=== PATIENT | male | born 1955 | race Caucasian/White ===

== ENCOUNTER 2018-07-25 18:16 | Inpatient (IN) | payer MEDICARE, OTHER ==
[~2018-07-25] VITALS: Ht 172.7 cm; Wt 54.0 kg
[2018-07-25] MEDS ORDERED: BENZTROPINE ME0.5 MG PO (18:19)
[2018-07-25] MEDS ORDERED: LORAZEPAM1 MG ORAL (18:19)
[2018-07-25] MEDS ORDERED: OLANZAPINE20 MG ORAL (18:19)
[2018-07-25] MEDS ORDERED: HALOPERIDOL5 MG ORAL (18:19)
[2018-07-25] MEDS ORDERED: Adenosine 6mg/2ml Inj ONE ×2 (18:24→18:25)
[2018-07-25] MEDS ORDERED: dilTIAZem HCl 50mg/10ml Inj IVP ONE (18:32)
--- NOTE | 2018-07-25 18:39 | NUR ---
ED Nurse Note: Pt BIBA from [facility] w/ complaints of diarrhea x 2 hours. Upon arrival, pt was hypotensive w/ systolic of 90 as per EMS. Upon arrival to ED, pt noted to have barrel chest, pursed lip breathing, pale in color, and had a BP of 114/71 HR was over 200 and in SVT. ERMD ordered cardizem. Pulled out adenosine and while maría gout at the first time, pyxis slot was not opening. Returned adenosine to [facility]. Before pushing cardizem via IV VS were 114/71 HR 248 O2 96% and RR 42. After cardizem sinus rhythm and HR went down to 103. A + O x1. Hx of schizo.
[2018-07-25 18:42] VITALS: BP 114/71
[2018-07-25] MEDS ORDERED: dilTIAZem HCl 25mg/5ml Inj IVP ONE (18:45)
--- NOTE | 2018-07-25 18:47 | Emergency Room Report ---
History of Present Illness General Chief Complaint: General Complaint Source: EMS (Kim Stokes DO) Present Illness HPI Patient was initially brought in with complaints of diarrhea Upon initial evaluation the patient's heart rate was over 200 Appear to be tachypneic and uncomfortable Patient himself is nonverbal with me He does nod his head to verbal questions Unknown regarding fevers Patient denies any chest pain however he does feel palpitation sensation Patient is brought in from a nursing facility with previous diagnoses of hypertension schizophrenia (Kim Stokes DO) Allergies: Coded Allergies: No Known Allergies (Unverified , 07/25/18) Patient History Limited by: medical condition Past Medical History: see triage record Pertinent Family History: unable to obtain Reviewed Nursing Documentation: PMH: Agreed; PSxH: Agreed (Kim Stokes DO) Nursing Documentation-PMH Past Medical History: No History, Except For Hx Hypertension: Yes Hx COPD: Yes History Of Psychiatric Problem: Yes - schizophrenia, depressive disorder (Kim Stokes DO) Review of Systems All Other Systems: limited - Other than the ones mentioned in the history of present illness all others are reviewed however they do stay limited due to the patient's mental status (Kim Stokes DO) Physical Exam Vital Signs Date Time Temp Pulse Resp B/P (MAP) Pulse Ox O2 Delivery O2 Flow Rate FiO2 07/25/18 18:12 98.1 73 16 95/83 94 Room Air Sp02 EP Interpretation: reviewed, normal General Appearance: mild distress - Tachypneic Head: normocephalic, atraumatic Eyes: bilateral eye PERRL, bilateral eye EOMI ENT: hearing grossly normal, normal pharynx, TMs + canals normal, uvula midline Neck: full range of motion, supple, no meningismus, no bony tend Respiratory: lungs clear, normal breath sounds, no rhonchi, no accessory muscle use, other - Tachypneic Cardiovascular #1: normal peripheral pulses, no JVD, no murmur, tachycardia Gastrointestinal: normal bowel sounds, no mass, no organomegaly, non-distended , no guarding, no hernia, no pulsatile mass, no rebound Genitourinary: no CVA tenderness Musculoskeletal: normal inspection Neurologic: responsive, 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, motor strength/tone normal Psychiatric: mood/affect normal Skin: normal color, no rash, warm/dry, palpation normal Lymphatic: normal inspection, no adenopathy (Kim Stokes DO) Procedures Critical Care Time Critical Care Time 50 minutes for initial critical presentation concerning for cardiopulmonary arrest and possible , not including any procedural time (Kim Stokes DO) Medical Decision Making Diagnostic Impression: Primary Impression: tachy arrhythmia Additional Impressions: COPD (chronic obstructive pulmonary disease) Qualified Codes: J44.9 - Chronic obstructive pulmonary disease, unspecified ACS (acute coronary syndrome) Diarrhea Qualified Codes: R19.7 - Diarrhea, unspecified Non-ST elevated myocardial infarction ER Course Patient is a fairly complex patient with multiple differential to consideration including but not limited to cardiac cardiopulmonary and vascular emergencies Patient's initial EKG significantly abnormal Required acute intervention Given some of the questionable prolonged QRS I did not want to initially used adenosine Low dose Cardizem was used with good reaction Patient extremely critical multiple differentials including pulmonary embolism also entertained patient requiring admission with further inpatient care Labs Test 07/25/18 19:15 07/25/18 19:31 07/25/18 21:45 07/26/18 06:54 White Blood Count 15.8 K/UL (4.8-10.8) 12.6 K/UL (4.8-10.8) Red Blood Count 4.92 M/UL (4.70-6.10) 4.88 M/UL (4.70-6.10) Hemoglobin 15.3 G/DL (14.2-18.0) 15.2 G/DL (14.2-18.0) Hematocrit 44.6 % (42.0-52.0) 44.8 % (42.0-52.0) Mean Corpuscular Volume 91 FL (80-99) 92 FL (80-99) Mean Corpuscular Hemoglobin 31.2 PG (27.0-31.0) 31.2 PG (27.0-31.0) Mean Corpuscular Hemoglobin Concent 34.4 G/DL (32.0-36.0) 33.9 G/DL (32.0-36.0) Red Cell Distribution Width 11.0 % (11.6-14.8) 11.3 % (11.6-14.8) Platelet Count 324 K/UL (150-450) 354 K/UL (150-450) Mean Platelet Volume 4.5 FL (6.5-10.1) 4.9 FL (6.5-10.1) Neutrophils (%) (Auto) 89.1 % (45.0-75.0) % (45.0-75.0) Lymphocytes (%) (Auto) 3.9 % (20.0-45.0) % (20.0-45.0) Monocytes (%) (Auto) 6.1 % (1.0-10.0) % (1.0-10.0) Eosinophils (%) (Auto) 0.0 % (0.0-3.0) % (0.0-3.0) Basophils (%) (Auto) 0.8 % (0.0-2.0) % (0.0-2.0) Prothrombin Time 11.4 SEC (9.30-11.50) Prothromb Time International Ratio 1.1 (0.9-1.1) Activated Partial Thromboplast Time 35 SEC (23-33) Urine Color Pale yellow Urine Appearance Clear Urine pH 7 (4.5-8.0) Urine Specific [place] 1.005 (1.005-1.035) Urine Protein 3+ (NEGATIVE) Urine Glucose (UA) 1+ (NEGATIVE) Urine Ketones 1+ (NEGATIVE) Urine Blood 3+ (NEGATIVE) Urine Nitrite Negative (NEGATIVE) Urine Bilirubin Negative (NEGATIVE) Urine Urobilinogen Normal MG/DL (0.0-1.0) Urine Leukocyte Esterase Negative (NEGATIVE) Urine RBC 5-10 /HPF (0 - 0) Urine WBC 0-2 /HPF (0 - 0) Urine Squamous Epithelial Cells Occasional /LPF Urine Amorphous Sediment Moderate /LPF (NONE) Urine Bacteria Few /HPF (NONE) Sodium Level 128 MMOL/L (136-145) Potassium Level 3.6 MMOL/L (3.5-5.1) Chloride Level 90 MMOL/L (98-107) Carbon Dioxide Level 24 MMOL/L (21-32) Anion Gap 14 mmol/L (5-15) Blood Urea Nitrogen 12 mg/dL (7-18) Creatinine 0.8 MG/DL (0.55-1.30) Estimat Glomerular Filtration Rate > 60 mL/min (>60) Glucose Level 116 MG/DL (74-106) Lactic Acid Level 3.10 mmol/L (0.4-2.0) 0.90 mmol/L (0.66-2.22) Calcium Level 8.8 MG/DL (8.5-10.1) Phosphorus Level 4.0 MG/DL (2.5-4.9) Magnesium Level 1.8 MG/DL (1.8-2.4) Total Bilirubin 0.3 MG/DL (0.2-1.0) Aspartate Amino Transf (AST/SGOT) 30 U/L (15-37) Alanine Aminotransferase (ALT/SGPT) 24 U/L (12-78) Alkaline Phosphatase 97 U/L (46-116) Total Creatine Kinase 121 U/L (26-308) Creatine Kinase MB 2.6 NG/ML (0.0-3.6) Creatine Kinase MB Relative Index 2.1 Troponin I 0.469 ng/mL (0.000-0.056) Pro-B-Type Natriuretic Peptide 1117 pg/mL (0-125) Total Protein 7.4 G/DL (6.4-8.2) Albumin 3.1 G/DL (3.4-5.0) Globulin 4.3 g/dL Albumin/Globulin Ratio 0.7 (1.0-2.7) Lipase 56 U/L (73-393) Arterial Blood pH 7.466 (7.350-7.450) Arterial Blood Partial Pressure CO2 37.0 mmHg (35.0-45.0) Arterial Blood Partial Pressure O2 58.9 mmHg (75.0-100.0) Arterial Blood HCO3 26.1 mmol/L (22.0-26.0) Arterial Blood Oxygen Saturation 90.9 % (95-100) Arterial Blood Base Excess 2.5 (-2-2) Akhil Test Positive Differential Total Cells Counted 100 Neutrophils % (Manual) 96 % (45-75) Lymphocytes % (Manual) 3 % (20-45) Monocytes % (Manual) 1 % (1-10) Eosinophils % (Manual) 0 % (0-3) Basophils % (Manual) 0 % (0-2) Band Neutrophils 0 % (0-8) Platelet Estimate Adequate Platelet Morphology Normal Red Blood Cell Morphology Normal (Kim Stokes DO) ER Course Patient signout to me. He presents with chief complaint of diarrhea from care home. On arrival heart rate noted to be in the 200. He has ST depression concerning for ACS. First troponin elevated at 0.469. Cardizem given and heart rate controlled now. Blood pressure stable. Patient will be admitted here. Discussed the case with Dr. Araiza who will admit. (Curtis Torres MD) EKG Diagnostic Results Rate: tachycardiac Rhythm: other - wide complex ST Segments: other (Kim Stokes DO) Rhythm Strip Diag. Results EP Interpretation: yes Rate: 220 Rhythm: no PVC's, no ectopy, other - Tachycardia (Kim Stokes DO) Chest X-Ray Diagnostic Results Chest X-Ray Diagnostic Results : Chest X-Ray Ordered: Yes # of Views/Limited/Complete: 1 View Indication: Shortness of Breath EP Interpretation: Yes Interpretation: no consolidation, no effusion, no pneumothorax Impression: No acute disease - Some interstitial markings, COPD Electronically Signed by: Kim Stokes DO (Kim Stokes DO) Last Vital Signs Date Time Temp Pulse Resp B/P (MAP) Pulse Ox O2 Delivery O2 Flow Rate FiO2 07/25/18 18:12 98.1 73 16 95/83 94 Room Air Status: improved (Kim Stokes DO) Status: improved (Curtis Torres MD) Disposition: ADMITTED INPATIENT Condition: Critical Kim Stokes DO Jul 25, 2018 18:47 Curtis Torres MD Jul 25, 2018 21:38
[2018-07-25] MEDS ORDERED: Solu-MEDROL 125mg Inj IVP ONE (19:00)
[2018-07-25] MEDS ORDERED: Levalbuterol Inh UD 1.25mg/0.5ml HHN ONE (19:00)
[2018-07-25 19:27] LABS: HEMATOCRIT 44.6 % (42.0-52.0); HEMOGLOBIN 15.3 G/DL (14.2-18.0); MEAN CORPUSCULAR VOLUME 91 FL (80-99); PLATELET COUNT 324 K/UL (150-450); RED BLOOD COUNT 4.92 M/UL (4.70-6.10); WHITE BLOOD COUNT 15.8 K/UL (4.8-10.8)
--- NOTE | 2018-07-25 19:40 | NUR ---
ED Nurse Note: Blood and urine sample sent to lab.
[2018-07-25 19:42] LABS: BASOPHILS % (AUTO) 0.8 % (0.0-2.0); LYMPHOCYTES % (AUTO) 3.9 % (20.0-45.0); MONOCYTES % (AUTO) 6.1 % (1.0-10.0); NEUTROPHILS % (AUTO) 89.1 % (45.0-75.0)
[2018-07-25 19:43] LABS: ANION GAP 14 mmol/L (5-15); BLOOD UREA NITROGEN 12 mg/dL (7-18); CALCIUM 8.8 MG/DL (8.5-10.1); CARBON DIOXIDE 24 MMOL/L (21-32); CHLORIDE 90 MMOL/L (98-107); CREATININE 0.8 MG/DL (0.55-1.30); POTASSIUM 3.6 MMOL/L (3.5-5.1); SODIUM 128 MMOL/L (136-145)
--- NOTE | 2018-07-25 19:51 | NUR ---
RESPIRATORY NOTE: ABG ORDERED FOR 1950 IS A DUPLICATE ORDER. ABG WAS COMPLETED AT 193. ED. CHARGE NURSE NOTIFIED.
[2018-07-25 19:52] LABS: APPEARANCE,URINE CLEAR; BILIRUBIN, URINE NEGATIVE (NEGATIVE); COLOR,URINE PALE YELLOW; GLUCOSE, URINE (UA) 1+ (NEGATIVE); KETONES,URINE 1+ (NEGATIVE); LEUKOCYTE ESTERASE ,URINE NEGATIVE (NEGATIVE); NITRITE,URINE NEGATIVE (NEGATIVE); PH,URINE 7 (4.5-8.0); PROTEIN,URINE 3+ (NEGATIVE); UROBILINOGEN,URINE NORMAL MG/DL (0.0-1.0)
[2018-07-25 19:57] LABS: ALANINE AMINOTRANSFERASE 24 U/L (12-78); ALBUMIN 3.1 G/DL (3.4-5.0); ALBUMIN/GLOBULIN RATIO 0.7 (1.0-2.7); ALKALINE PHOSPHATASE 97 U/L (46-116); ASPARTATE AMINO TRANSFERASE 30 U/L (15-37); BILIRUBIN,TOTAL 0.3 MG/DL (0.2-1.0); CKMB 2.6 NG/ML (0.0-3.6); CREATINE KINASE 121 U/L (26-308)
[2018-07-25 20:05] LABS: INR 1.1 (0.9-1.1)
--- NOTE | 2018-07-25 20:50 | NUR ---
ED Nurse Note: Notified ERMD Pt's Lactic acid and Troponin level, ERMD aware.
[2018-07-25] MEDS ORDERED: dilTIAZem HCl CD 120mg cap ORAL ONE (21:00)
[2018-07-25 21:13] VITALS: BP 127/55
--- NOTE | 2018-07-25 21:55 | NUR ---
ED Nurse Note: Lactic acid reflex sample sent to lab.
--- NOTE | 2018-07-25 23:08 | NUR ---
ED Nurse Note: Insert F/C for strict I/O. Pt had diarrhea [id number], cleaned pt and asscess skin and sacral and back skin all intact.
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
--- NOTE | 2018-07-26 01:00 | NUR ---
ED Nurse Note: Report given to ISA Rodas Pt skin and condition report to floor nurse.
[2018-07-26 01:05] VITALS: BP 116/66
--- NOTE | 2018-07-26 01:40 | NUR ---
NURSE NOTES: ADMITTED 63 YEAR OLD MALE TO ROOM 205 BED 1 VIA GURNEY FROM EMERGENCY DEPARTMENT WITH DIAGNOSIS DIARRHEA/TACHY ARRHYTHMIA, UNDER THE CARE OF DR. DE ANDA. PATIENT AWAKE, ALERT/ORIENTED X1, CONFUSED, DISORIENTED, ORIENTATED TO ROOM/ENVIRONMENT. TOLERATING 02 2LVIA NASAL CANULA, SP02 94%, NO SIGNS AND SYMPTOMS OF ACUTE CARDIO RESPIRATORY DISTRESS/SHORTNESS OF BREATH, NO PERIPHERAL EDEMA NOTED. VITALS MONITORED, B/P 138/76, R 22, PULSE 84, T 97.9. JONES CATHETER FR #16 INTACT, PATENT, DRAINING YELLOW URINE VIA GRAVITY, NO SIGNS AND SYMPTOMS OF HEMATURIA, PATIENT CLEAN AND DRY, NO DIARRHEA NOTED. SKIN INTACT, SACRAL REDNESS SECONDARY TO DIARRHEA. SIDE RAILS UP X3/BED IN LOWEST POSITION FOR SAFETY. CALL LIGHT WITHIN REACH. FREQUENT ROUNDING FOR SAFETY/NEEDS.
--- NOTE | 2018-07-26 03:07 | NUR ---
NURSE NOTES: TELEPHONE CALL PLACED TO [facility] BOARD AND CARE, SPOKE TO MARQUISE, CAREGIVER, REGARDING HISTORY OF VACCINATIONS/HEALTH CARE DECISION MAKER - CAREGIVER STATED THAT PATIENT DOES NOT HAVE RECORD OF VACCINATIONS, NO CONSERVATOR OR HEALTH CARE DECISION MAKER. AISLINN MARR, PATIENT COUSIN, WAS NOTIFIED BY BOARD AND CARE OF TRANSFER TO [facility]. WILL ATTEMPT TO FOLLOW UP WITH MR. MARR [phone] - [phone].
[2018-07-26 04:00] VITALS: BP 118/68
--- NOTE | 2018-07-26 06:24 | NUR ---
NURSE NOTES: RESTED QUIETLY, NO DISTRESS NOTED.
--- NOTE | 2018-07-26 07:30 | NUR ---
NURSE NOTES: Received report from Janina/RN, Patient is confused and trying to get up. IV line intact running 100cc /hr. bed alarm on, call light in reach, bed in low position. Will continue plan of care.
--- NOTE | 2018-07-26 07:50 | NUR ---
CASE MANAGEMENT:REVIEW 63 YR OLD MALE BIBA FROM [facility] CC: HYPOTENSION ~ BP 97/73 SI: TACHY ARRHYTHMIA. COPD. ACS. DIARRHEA 98.0 248 42 95/83 94% ON RA WBC+15.8 NA-128 TROPONIN(+)0.469 IS: IV CARDIZEM IV SOLUMEDROL CARDIZEM PO ALBUTEROL HHN CXR BLOOD CX : TO TELEMETRY IS: IVF@100/HR INTERQUAL CRITERIA MET
[2018-07-26 07:53] LABS: HEMATOCRIT 44.8 % (42.0-52.0); HEMOGLOBIN 15.2 G/DL (14.2-18.0); MEAN CORPUSCULAR VOLUME 92 FL (80-99); PLATELET COUNT 354 K/UL (150-450); RED BLOOD COUNT 4.88 M/UL (4.70-6.10); RED CELL DISTRIBUTION WIDTH 11.3 % (11.6-14.8); WHITE BLOOD COUNT 12.6 K/UL (4.8-10.8)
[2018-07-26 08:00] VITALS: BP 155/86
[2018-07-26] MEDS: Benztropine 1mg tab ORAL SCH ×2 (08:44→21:06)
[2018-07-26] MEDS: Megace 400mg/10ml Susp ORAL SCH (08:45)
[2018-07-26] MEDS ORDERED: LORazepam 1mg tab ORAL SCH (09:00)
[2018-07-26] MEDS: Breo Ellipta 100/25mcg - 14 dose INH SCH (09:24)
--- NOTE | 2018-07-26 09:28 | NUR ---
RESPIRATORY NOTE: Pt scheduled MDI tx, agreed to take treatment and then refused. Asked me to leave room and leave him alone. will notify RN.
[2018-07-26] MEDS ORDERED: Metoprolol Succinate XL 50mg tab ORAL SCH (10:00)
--- NOTE | 2018-07-26 10:08 | NUR ---
NURSE NOTES: Notified Dr. Nancy Cedillo, regarding Hear rate is >200. Will continue plan of care.
[2018-07-26] MEDS ORDERED: Metoprolol Succinate XL 25mg tab ORAL SCH (10:30)
--- NOTE | 2018-07-26 10:57 | NUR ---
NURSE NOTES: Called Dr. Kendall, regarding Hear rate is >200. left a message. Will continue plan of care.
--- NOTE | 2018-07-26 11:00 | History and Physical Report ---
DATE OF ADMISSION: 07/25/2018 NOTE: "POOR AUDIO QUALITY" HISTORY OF PRESENT ILLNESS: This is a 63-year-old male who came to the emergency room with chest pain, palpitations, and generalized weakness. The patient was also found to have heart rate of over 200 on arrival and also has some diarrhea for the last few days and he has depression. Heart rate is controlled by Cardizem which was given and his troponin is slightly positive . The patient is currently doing better. PAST MEDICAL HISTORY: Significant for depression and hypertension. ALLERGIES: NKA. MEDICATIONS: See the list. PHYSICAL EXAMINATION: GENERAL: This is an elderly male, who is currently awake and comfortable. Currently, no chest pain. VITAL SIGNS: Blood pressure is 140/70, pulse 74, and respirations 18. HEENT: NAD. CHEST: Bilaterally clear. CARDIOVASCULAR: Regular rhythm. No gallop. No murmur. ABDOMEN: Soft. Positive bowel sounds. Nontender. EXTREMITIES: No CCE. NEUROLOGICAL: No focal deficit. ASSESSMENT: 1. Acute coronary syndrome. 2. Cardiac arrhythmia. 3. Depression. PLAN: We will admit to a telemetry bed to rule out . Consider Cardiology consult and continue aspirin and beta-miesha. Check 2D echocardiogram and probably stress test. Roberto Araiza M.D. DR: GABRIEL JOB#: [id number] CC:
[2018-07-26] MEDS ORDERED: dilTIAZem HCl 25mg/5ml Inj IVP SCH (11:15)
[2018-07-26 12:00] VITALS: BP 100/59
[2018-07-26] MEDS ORDERED: dilTIAZem HCl 25mg/5ml Inj IV SCH ×2 (12:00→12:30)
[2018-07-26] MEDS ORDERED: cefTRIAXone 1 GM in D5W 55 ML IVPB SCH (14:00)
[2018-07-26] MEDS ORDERED: Haloperidol 5mg/ml Inj IM PRN (14:45)
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
--- NOTE | 2018-07-26 15:12 | NUR ---
NURSE NOTES:WOUND CARE NOTES:Pt presented on admission with non-blanchable erythema Sacrum extending to L buttocks. Base of wound without fluctuance or induration .Pt denied tenderness when minimally palpated. (L011.5cm x (W)13cm. Non-blanchable erythema bilat heels and lateral aspects of both feet. Non-tender when minimally palpated. Pt demonstrated to reposition self when cued by staff. Pt educated on wound prevention and encouraged to frequently turn while in bed. Pt verbalized understanding. Recommendations: Apply Triad paste to buttocks /sacrum. Cover with Optifoam drsg .Change every 3 days and prn. Apply Cavilon skin barrier to red areas both heels and lateral aspects of both feet .Cover each heel with Optifoam drsg .Esquivel every 7 days and prn. Encourage and assist with repositioning at least every 2hours or as tolerated.
[2018-07-26] MEDS ORDERED: Digoxin 0.5mg/2ml Inj IVP SCH (15:43)
[2018-07-26 16:00] VITALS: BP 112/102
[2018-07-26] MEDS: Metoprolol 5mg/5ml Inj IVP SCH ×3 (16:29→18:05)
[2018-07-26] MEDS: OLANZapine 2.5mg tab ORAL SCH (18:05)
[2018-07-26 20:00] VITALS: BP 131/74
--- NOTE | 2018-07-26 20:11 | NUR ---
HAND-OFF: Report given to Raissa/Zeinab, Patient ia asleep, no sign of distress/SOB noted. Endorsed plan of care.
[2018-07-26] MEDS: Metoprolol Succinate XL 50mg tab ORAL SCH (21:05)
--- NOTE | 2018-07-26 21:32 | NUR ---
NURSE NOTES: Report received from ASIYA Bonner. Pt is lying comfortably in semi-fowlers with no signs of distress. Pt is A+Ox1 and shows no signs of pain/SOB. Respirations are even and unlabored on 2 L NC. IV site is patent, intact, and running fluids @ prescribed rate. [place] in place, patent, and draining to gravity at foot of bed. Bilateral soft wrist restraints in place with no signs of skin breakdown. Food and water needs met. Bed is at lowest position, brakes engaged, siderails x3, bed alarm on, and call light within reach. Pt is in stable condition at this time; will continue to monitor.
--- NOTE | 2018-07-26 21:58 | Cardiology Progress Note ---
Assessment/Plan Assessment/Plan The patient is seen and examined, full consult note will be dictated shortly. Objective Last 24 Hour Vital Signs Date Time Temp Pulse Resp B/P (MAP) Pulse Ox O2 Delivery O2 Flow Rate FiO2 07/26/18 21:05 89 131/74 07/26/18 20:00 97.7 89 20 131/74 (93) 92 07/26/18 18:05 132 128/83 07/26/18 17:17 130 112/102 07/26/18 16:30 175 07/26/18 16:29 79 100/59 07/26/18 16:00 97.3 175 20 112/102 (105) 98 07/26/18 16:00 171 07/26/18 12:50 175 110/59 07/26/18 12:00 97.1 79 20 100/59 (73) 95 07/26/18 10:39 100 155/86 07/26/18 09:28 Room Air 21 07/26/18 09:24 Nasal Cannula 2.0 28 07/26/18 09:24 Nasal Cannula 2.0 28 07/26/18 09:00 Nasal Cannula 2.0 07/26/18 09:00 Nasal Cannula 2.0 07/26/18 08:00 124 07/26/18 08:00 96.7 100 20 155/86 (109) 93 07/26/18 05:30 Nasal Cannula 2.0 07/26/18 04:00 74 07/26/18 04:00 97.9 85 18 118/68 (85) 97 07/26/18 02:09 Nasal Cannula 2.0 07/26/18 01:20 97.8 86 30 116/66 92 Room Air 2.0 21 07/26/18 01:05 97.8 86 30 116/66 92 Room Air 2.0 Intake and Output 07/25/18 07/26/18 19:00 07:00 Intake Total 540 ml Balance 540 ml Intake Oral 340 ml IV Total 200 ml # Voids 1 Laboratory Tests Test 07/26/18 06:54 White Blood Count 12.6 K/UL (4.8-10.8) H Red Blood Count 4.88 M/UL (4.70-6.10) Hemoglobin 15.2 G/DL (14.2-18.0) Hematocrit 44.8 % (42.0-52.0) Mean Corpuscular Volume 92 FL (80-99) Mean Corpuscular Hemoglobin 31.2 PG (27.0-31.0) H Mean Corpuscular Hemoglobin Concent 33.9 G/DL (32.0-36.0) Red Cell Distribution Width 11.3 % (11.6-14.8) L Platelet Count 354 K/UL (150-450) Mean Platelet Volume 4.9 FL (6.5-10.1) L Neutrophils (%) (Auto) % (45.0-75.0) Lymphocytes (%) (Auto) % (20.0-45.0) Monocytes (%) (Auto) % (1.0-10.0) Eosinophils (%) (Auto) % (0.0-3.0) Basophils (%) (Auto) % (0.0-2.0) Differential Total Cells Counted 100 Neutrophils % (Manual) 96 % (45-75) H Lymphocytes % (Manual) 3 % (20-45) L Monocytes % (Manual) 1 % (1-10) Eosinophils % (Manual) 0 % (0-3) Basophils % (Manual) 0 % (0-2) Band Neutrophils 0 % (0-8) Platelet Estimate Adequate Platelet Morphology Normal Red Blood Cell Morphology Normal Microbiology Date/Time Source Procedure Growth Status 07/25/18 19:15 Blood Blood Culture - Preliminary Resulted 07/25/18 19:00 Blood Blood Culture - Preliminary Resulted 07/25/18 21:30 Rectum Received Thom Gleason MD Jul 26, 2018 21:58
[2018-07-27] VITALS: BP 132/87
[2018-07-27 04:00] VITALS: BP 147/92
--- NOTE | 2018-07-27 05:48 | NUR ---
NURSE NOTES: Pt's blood positive for gram negative rods. Left message with Dr. Araiza regarding these results; awaiting response.
--- NOTE | 2018-07-27 06:38 | NUR ---
NURSE NOTES: Left message with Dr. Arevalo regarding blood cultures; awaiting response.
--- NOTE | 2018-07-27 07:07 | NUR ---
HAND-OFF: Report given to ASIYA Garcia. Pt is in stable condition; plan of care endorsed.
--- NOTE | 2018-07-27 07:15 | NUR ---
NURSE NOTES: I received the patient resting in bed. Patient awakes to name. Bed in the lowest position and call light within reach. Soft wrist restraints on patient. Medina inserted and appears to be draining well. I will continue to monitor the patient and implement care.
[2018-07-27 08:00] VITALS: BP 137/78
[2018-07-27] MEDS: Benztropine 1mg tab ORAL SCH ×2 (08:42→20:26)
[2018-07-27] MEDS: Metoprolol Succinate XL 50mg tab ORAL SCH ×2 (08:42→20:27)
[2018-07-27] MEDS: OLANZapine 2.5mg tab ORAL SCH ×3 (08:42→17:49)
[2018-07-27] MEDS: Megace 400mg/10ml Susp ORAL SCH (08:43)
[2018-07-27] MEDS: Breo Ellipta 100/25mcg - 14 dose INH SCH (09:00)
[2018-07-27] MEDS ORDERED: Vancomycin 1gm/D5W 275ml IVPB SCH ×2 (10:00)
[2018-07-27] MEDS: Piperacillin/Tazobactam 3.375 GM in D5W 110 ML IVPB SCH ×3 (10:07→21:15)
[2018-07-27 12:00] VITALS: BP 143/83
--- NOTE | 2018-07-27 12:27 | NUR ---
NURSE NOTES: Patient had soft wrist restraints applied. Patient peripheral pulses present. Initial order never entered. I conducted assessments per policy. Patient calm and resting in bed. Bed in the lowest position and call light within reach.
--- NOTE | 2018-07-27 13:51 | History and Physical Report ---
DATE OF ADMISSION: 07/25/2018 HISTORY OF PRESENT ILLNESS: This is a 63-year-old male, who lives in [facility], came to the emergency room with diarrhea, tachycardia, ACS, COPD, and generalized weakness. The patient is currently sleeping, unable to give any history. PAST MEDICAL HISTORY: Significant for COPD, depression, and agitation. MEDICATIONS: See the list. Tylenol, Cogentin, Ellipta, Haldol, lorazepam, Megace, and Zyprexa. PHYSICAL EXAMINATION: GENERAL: This is an elderly male, currently sleeping, looks comfortable. Short of breath is improving. No chest pain. VITAL SIGNS: Blood pressure is 155/86, pulse 100, respirations 20, saturation 93%, and temperature 96.7. HEENT: AT/NC. EOMI. PERRLA. NECK: Supple. No JVD. CHEST: Bilateral decreased breath sounds. Scattered crackles. CARDIOVASCULAR: rhythm. Tachycardia. ABDOMEN: Soft. Positive bowel sounds. Nontender. EXTREMITIES: CCE. NEUROLOGIC: Generalized weakness. GENITOURINARY: Deferred. LABORATORY DATA: White counts are 16,000, hemoglobin 15, and platelets are 324. Chemistry panel; his lactic acid 3.10. Sodium 128, potassium 3.6, BUN 12, creatinine 0.8. Troponin 0.469. BNP was 1117. Glucose 117. Albumin is 3.1. His chest x-ray report and microbiology done, results are not available. ASSESSMENT AND PLAN: 1. Acute coronary syndrome. 2. Tachycardia. 3. Acute COPD. 4. Depression. 5. Diarrhea. We will currently continue current treatment. The patient is currently on aspirin, Haldol, Zyprexa, and lorazepam. Check 2D echo. Cardiology consult. Continue Cardizem. Also added Solu-Medrol and consider Pulmonary, Cardiology, and Psychiatry consult. Roberto Araiza M.D. DR: MILAGROS JOB#: [id number] CC:
--- NOTE | 2018-07-27 13:58 | NUR ---
NURSE NOTES: Discharged ordered entered by ESTRELLITA Villela and received from Dr. Laird. Report given to ASIYA Davila at [facility].
[2018-07-27 16:00] VITALS: BP 141/97
--- NOTE | 2018-07-27 16:45 | Consultation ---
DATE OF CONSULTATION: 07/27/2018 INFECTIOUS DISEASE CONSULTATION CONSULTING PHYSICIAN: Reyna Arevalo M.D. REFERRING PHYSICIAN: Mick Araiza M.D. REASON FOR CONSULTATION: Sepsis. HISTORY OF PRESENT ILLNESS: This is a 63-year-old gentleman with history of hypertension, COPD, schizophrenia, and depression, who came in with diarrhea. He was found to be tachycardic and was found to have sepsis, and infectious diseases consultation has been obtained for antibiotics. PAST MEDICAL HISTORY: 1. History of hypertension. 2. COPD. 3. Schizophrenia. 4. Depression. SOCIAL HISTORY: Unknown. FAMILY HISTORY: Unknown. REVIEW OF SYSTEMS: Unable to obtain currently. MEDICATIONS: As an inpatient, he is on ceftriaxone, metoprolol, Zyprexa, haloperidol, Cogentin, fluticasone, megestrol, and Tylenol. ALLERGIES: No known drug allergies. PHYSICAL EXAMINATION: VITAL SIGNS: Temperature 98.2, T-max of 98.3, pulse 70, respiratory rate 16, and blood pressure 137/78. O2 saturation of 97%. HEENT: Pupils are equally reactive to light and accommodation. Mouth appears clean without thrush. NECK: Supple. No adenopathy. No JVD. CARDIOVASCULAR: Regular rate and rhythm. No murmurs. LUNGS: Clear to auscultation bilaterally. No crackles. No wheezes. ABDOMEN: Soft and nontender. No organomegaly. EXTREMITIES: No cyanosis, no clubbing, no edema. LABORATORY AND DIAGNOSTIC DATA: White count 15.8 on 07/25/2018, 12.6 on 07/26/2018; hemoglobin 15.2; hematocrit 44.8; MCV 92; and platelet count 354 with neutrophils of 96%. Sodium 128, potassium 3.6, chloride 90, bicarb 24, BUN 12, and creatinine 0.8. Glucose 116. Calcium 8.8. Total bilirubin 0.3, AST 30, ALT 24, and alkaline phosphatase 97. CK 121. CK-MB 2.6. Beta-natriuretic peptide 1117. Total protein 7.4, albumin 3.1. Lipase 56. UA showing 0 to 2 white cells. Blood culture showing gram-positive cocci and gram-negative rods. ASSESSMENT: This is a 63-year-old gentleman with history of hypertension, chronic obstructive pulmonary disease and schizophrenia, who comes in and is found to have, 1. Gram-positive and gram-negative sepsis. 2. Hypertension. 3. Schizophrenia. PLAN: 1. Discontinue ceftriaxone. 2. We will start the patient on IV vancomycin and Zosyn. 3. We will order an ultrasound of abdomen. 4. We will follow up cultures and adjust antibiotics accordingly. 5. We will order urine cultures. I would like to thank Dr. Araiza for this consultation. Reyna Arevalo M.D. DR: FARTUN JOB#: [id number] CC:
--- NOTE | 2018-07-27 17:45 | Consultation ---
DATE OF CONSULTATION: 07/27/2018 HISTORY OF PRESENT ILLNESS: This is a 63-year-old male who was sent into the hospital with diarrhea. He was also noted to be tachycardic with a heart rate over 200. The patient unable to provide any questions and answers to me. He only responds by nodding his head. He was seen by psychiatry overnight as well as Cardiology. PAST MEDICAL HISTORY: Notable for COPD, hypertension, schizophrenia, depression. REVIEW OF SYSTEMS: Unreliable. PAST SURGICAL HISTORY: None noted. SOCIAL HISTORY: No history of alcohol or tobacco usage. PHYSICAL EXAMINATION: VITAL SIGNS: Blood pressure 90/60, heart rate at this time 74, respirations 16, afebrile, O2 saturation room air. GENERAL: Reveals a 63-year-old male. HEENT: Unremarkable. CHEST: Few rhonchi bilaterally. HEART: Heart sounds are normal. ABDOMEN: Soft. EXTREMITIES: There is no edema. LABORATORY AND DIAGNOSTIC DATA: EKG shows normal sinus rhythm. There is a prolonged QRS noted. Lab testing notable for white count 15,000, hemoglobin of 15, platelet count is normal. Urinalysis is negative. Creatinine is 0.8. ABG shows pH 7.46, pCO2 37, pO2 58. X-ray chest shows clear lung mason bilaterally. IMPRESSION: 1. Chronic obstructive pulmonary disease. 2. Hypoxemia with low pO2. 3. Diarrhea. DISCUSSION: Admitted to the hospital. I have reviewed his current medication regimen and note that he has been started on broad-spectrum antibiotics, vancomycin and Zosyn. I believe that it is adequate given his high white count although I do not see a clear pulmonary source. He has also received beta-blockers for tachycardia. Continue with the medications. We will follow as mechanical service specialist. Currently his status is stable. David Cage M.D. DR: Pedrito JOB#: [id number] CC:
[2018-07-27] MEDS: Vancomycin 500mg/D5W 110ml IVPB SCH ×2 (17:54)
--- NOTE | 2018-07-27 19:13 | Cardiology Report ---
APPROVED REPORT EXAM: Two-dimensional and M-mode echocardiogram with Doppler and color Doppler. INDICATION Chest Pain M-Mode DIMENSIONS IVSd1.0 (0.7-1.1cm)Left Atrium (MM)2.5 (1.6-4.0cm) LVDd4.8 (3.5-5.6cm)Aortic Root3.1 (2.0-3.7cm) PWd1.1 (0.7-1.1cm)Aortic Cusp Exc.1.8 (1.5-2.0cm) IVSs1.1 cm LVDs3.0 (2.5-4.0cm) PWs1.4 cm Other Information Technically limited study due to Heart position .All images obtained in subcostal views . Left ventricular ejection fraction estimated to be 55-60%. Mild left ventricular hypertrophy by 2-D. No evidence of pericardial effusion. All other cardiac chamber sizes are within normal limits. Aortic valve calcification with normal cusp excursion . Thickened mitral valve leaflets with normal excursion. Mild mitral annulus and aortic root calcification. Pulmonic valve not well visualized. IVC in normal size without physiologic collapse . A color flow and spectral Doppler study was performed and revealed: No aortic insufficiency . Mitral diastolic velocities suggest reduced left ventricular relaxation c/w mild LV diastolic dysfunction (Grade I ) Mild mitral regurgitation. Mild tricuspid regurgitation. Tricuspid systolic velocities suggests peak right ventricular systolic pressure of 34mmHg.
--- NOTE | 2018-07-27 19:14 | Cardiology Report ---
APPROVED REPORT EKG Measurement Heart [id number] Multifocal atrial tachycardia Nonspecific ST and T wave abnormality Abnormal ECG
--- NOTE | 2018-07-27 19:15 | Diagnostic Imaging Report ---
Indication: Dyspnea Comparison: 07/25/2018 A single view chest radiograph was obtained. Findings: Patchy infiltrates suspected within the left lung base and perihilar regions. Correlate clinically. Follow-up recommended as well as clinical correlation. Heart size remains normal. IMPRESSION: Mild patchy infiltrate suspected at the left lung base
--- NOTE | 2018-07-27 19:27 | NUR ---
HAND-OFF: Report given to ASIYA Brennan.
--- NOTE | 2018-07-27 19:29 | NUR ---
NURSE NOTES: Report received from SAIYA Garcia. Pt is in stable condition and lying comfortably in bed with no signs or symptoms of SOB or distress. Bed in the lowest position, bed brakes engaged, side rails up x3, and call light within reach. Will continue to monitor.
[2018-07-27 20:00] VITALS: BP 160/91
--- NOTE | 2018-07-27 22:30 | Progress Note ---
DATE: 07/27/2018 SUBJECTIVE: This is an elderly male, currently in bed, looks comfortable, has diarrhea. He is confused. PHYSICAL EXAMINATION: VITAL SIGNS: Blood pressure is 141/97, pulse 69, no fever. HEENT: NAD. CHEST: Bilaterally clear. CARDIOVASCULAR: Regular rhythm. ABDOMEN: Soft. EXTREMITIES: CCE. NEUROLOGICAL: Generalized weakness. LABORATORY AND DIAGNOSTIC DATA: White counts are 13,000 and hemoglobin 15. Chemistry panel, lactic acid 0.90. ASSESSMENT: 1. Confusion. 2. Psychosis. 3. Depression. 4. Agitation. 5. Tachyarrhythmia PLAN: 1. The patient was given dose of metoprolol. 2. Cardiology consult was obtained. 3. Continue Zyprexa. 4. Also psych is on the case. 5. Continue vancomycin for fever. Roberto Araiza M.D. DR: Keith JOB#: [id number] CC:
--- NOTE | 2018-07-27 22:54 | General Progress Note ---
Assessment/Plan Problem List: (1) Acute metabolic encephalopathy ICD Codes: G93.41 - Metabolic encephalopathy SNOMED: 86061503, [id number] Assessment/Plan zyprexa 5mg po tid dc ativan haldol Im prn Subjective Neurologic/Psychiatric: Reports: anxiety, depressed, emotional problems Allergies: Coded Allergies: No Known Allergies (Unverified , 07/25/18) Objective Last 24 Hour Vital Signs Date Time Temp Pulse Resp B/P (MAP) Pulse Ox O2 Delivery O2 Flow Rate FiO2 07/27/18 21:00 Nasal Cannula 2.0 07/27/18 20:27 78 160/91 07/27/18 20:00 97.8 78 19 160/91 (114) 95 07/27/18 16:00 97.9 69 20 141/97 (112) 96 07/27/18 15:07 74 07/27/18 12:00 98.1 72 18 143/83 (103) 95 07/27/18 11:09 71 07/27/18 09:31 70 16 97 Nasal Cannula 2.0 28 07/27/18 09:31 70 16 97 Nasal Cannula 2.0 28 07/27/18 09:00 Nasal Cannula 2.0 07/27/18 08:42 68 137/78 07/27/18 08:00 98.2 68 20 137/78 (97) 96 07/27/18 07:26 70 07/27/18 06:38 80 18 Room Air 21 07/27/18 04:00 75 07/27/18 04:00 97.0 85 20 147/92 (110) 94 07/27/18 00:00 83 07/27/18 00:00 97.6 86 20 132/87 (102) 94 Intake and Output 07/26/18 07/27/18 19:00 07:00 Intake Total 540 ml Output Total 350 ml 850 ml Balance 190 ml -850 ml Intake Oral 540 ml Output Urine Total 350 ml 850 ml Height (Feet): 5 Height (Inches): 8.00 Weight (Pounds): 124 General Appearance: alert, confused, agitated Yessy Barillas MD Jul 27, 2018 22:54
--- NOTE | 2018-07-27 23:38 | NUR ---
NURSE NOTES: Patient removed rachel catheter with balloon inflated despite restraints. Bleeding has stopped and no bladder distension noted at this time. Will continue to monitor.
[2018-07-28] VITALS: BP 165/92
[2018-07-28] MEDS: Vancomycin 500mg/D5W 110ml IVPB SCH ×2 (02:51)
[2018-07-28 04:00] VITALS: BP 152/87
[2018-07-28] MEDS: Piperacillin/Tazobactam 3.375 GM in D5W 110 ML IVPB SCH (06:13)
--- NOTE | 2018-07-28 07:22 | NUR ---
NURSE NOTES: I received the patient awake and resting in bed. Patient alert to name. Bed in the lowest position and call light within reach. Soft wrist restraints on the patients. Dr. Araiza notified about the patient removing his rachel catheter. Bed in the lowest position and call light within reach.
--- NOTE | 2018-07-28 07:45 | NUR ---
HAND-OFF: Report given to ASIYA Garcia.
[2018-07-28 08:00] VITALS: BP 161/105
--- NOTE | 2018-07-28 08:21 | NUR ---
NURSE NOTES: Patient removed his rachel during the night. I contacted Dr. Araiza to let him know and he said to contact Dr. Beckett. I contacted Dr. Beckett and he said he didn't know if he was going to be able to see the patient today because he is busy. I let Dr. Araiza know. The patient has had urine output since removing his rachel. A bladder scan was done and there was 96 ml of urine in the bladder. Patient resting in bed. Bed in the lowest position and call light within reach.
--- NOTE | 2018-07-28 09:00 | Pulmonology Progress Note ---
Assessment/Plan Assessment/Plan IMPRESSION: 1. Chronic obstructive pulmonary disease. 2. Hypoxemia with low pO2. Now resolved. 3. Diarrhea. DISCUSSION: Continue broad-spectrum antibiotics, vancomycin and Zosyn. I believe that it is adequate given his high white count although I do not see a clear pulmonary source. He has also received beta-blockers for tachycardia. Continue with the medications. I will follow as customer service advocate. Currently his status is stable. Subjective Interval Events: saturating well on RA now; comfortable Constitutional: Reports: no symptoms HEENT: Repors: no symptoms Respiratory: Reports: dry cough Cardiovascular: Reports: no symptoms Gastrointestinal/Abdominal: Reports: no symptoms Genitourinary: Reports: no symptoms Allergies: Coded Allergies: No Known Allergies (Unverified , 07/25/18) Objective Last 24 Hour Vital Signs Date Time Temp Pulse Resp B/P (MAP) Pulse Ox O2 Delivery O2 Flow Rate FiO2 07/28/18 04:00 85 07/28/18 04:00 97.9 66 18 152/87 (108) 96 07/28/18 00:00 98.2 73 18 165/92 (116) 93 07/28/18 00:00 79 07/27/18 23:44 75 24 Room Air 21 07/27/18 21:00 Nasal Cannula 2.0 07/27/18 20:27 78 160/91 07/27/18 20:00 78 07/27/18 20:00 97.8 78 19 160/91 (114) 95 07/27/18 16:00 97.9 69 20 141/97 (112) 96 07/27/18 15:07 74 07/27/18 12:00 98.1 72 18 143/83 (103) 95 07/27/18 11:09 71 07/27/18 09:31 70 16 97 Nasal Cannula 2.0 28 07/27/18 09:31 70 16 97 Nasal Cannula 2.0 28 07/27/18 09:00 Nasal Cannula 2.0 Intake and Output 07/27/18 07/28/18 18:59 06:59 Intake Total 470.0 ml Output Total 450 ml 600 ml Balance 20.0 ml -600 ml Intake Oral 360 ml IV Total 110.0 ml Output Urine Total 450 ml 600 ml # Bowel Movements 1 General Appearance: no acute distress HEENT: normocephalic Respiratory/Chest: chest wall non-tender, lungs clear Cardiovascular: normal peripheral pulses, normal rate Abdomen: normal bowel sounds Microbiology Date/Time Source Procedure Growth Status 07/25/18 19:15 Blood Blood Culture - Final Staphylococcus Epidermidis Complete 07/25/18 19:00 Blood Blood Culture - Final Acinetobacter Lwoffii Staphylococcus Epidermidis Complete 07/25/18 21:30 Nose MRSA Culture - Final NO METHICILLIN RESISTANT STAPH AUREUS... Complete 07/27/18 12:30 Urine,Clean Catch Urine Culture - Preliminary NO GROWTH Resulted 07/25/18 21:30 Rectum - Final NO CARBAPENEM-RESISTANT ENTEROBACTERI... Complete 07/25/18 21:30 Rectum VRE Culture - Final NO VANCOMYCIN RESISTANT ENTEROCOCCUS ... Complete Current Medications Medications (Trade) Dose Ordered Sig/Lance Route PRN Reason Start Time Stop Time Status Last Admin Dose Admin Acetaminophen (Tylenol) 650 mg Q4H PRN ORAL Mild Pain/Temp > 100.5 07/26/18 03:30 08/25/18 03:29 Benztropine Mesylate (Cogentin) 1 mg BID@0900,2100 ORAL 07/26/18 09:00 08/25/18 08:59 07/27/18 20:26 Fluticasone/ Vilanterol (Breo Ellipta 100/25) 1 puff DAILY INH 07/26/18 09:00 08/25/18 08:59 07/27/18 09:00 Haloperidol Lactate (Haldol) 5 mg Q6H PRN IM Agitation 07/26/18 14:45 08/25/18 14:44 07/27/18 19:40 Megestrol Acetate (Megace) 40 mg DAILY ORAL 07/26/18 09:00 08/25/18 08:59 07/27/18 08:43 Metoprolol Succinate (Toprol XL) 50 mg Q12HR ORAL 07/26/18 21:00 08/25/18 20:59 07/27/18 20:27 Metoprolol Tartrate (Lopressor) 5 mg Q5MIN X 3 IVP 07/26/18 15:35 08/25/18 15:34 07/26/18 18:05 Olanzapine (ZyPREXA) 2.5 mg TID ORAL 07/26/18 18:00 08/25/18 17:59 07/27/18 17:49 Piperacillin Sod/ Tazobactam Sod 3.375 gm/Dextrose 110 ml @ 27.5 mls/hr EVERY 8 HOURS IVPB 07/27/18 09:00 08/01/18 08:59 07/28/18 06:13 Sodium Chloride 1,000 ml @ 100 mls/hr Q10H IV 07/26/18 03:30 08/25/18 03:29 07/28/18 06:17 Vancomycin HCl (Vanco rx to dose) 1 ea DAILY PRN MISC Per rx protocol 07/27/18 08:00 08/26/18 07:59 Vancomycin HCl 500 mg/Dextrose 110 ml @ 110 mls/hr Q8H IVPB 07/27/18 18:00 08/01/18 17:59 07/28/18 02:51 David Cage MD Jul 28, 2018 09:00
[2018-07-28] MEDS: Breo Ellipta 100/25mcg - 14 dose INH SCH (09:03)
[2018-07-28 09:19] LABS: HEMATOCRIT 41.3 % (42.0-52.0); MEAN CORPUSCULAR VOLUME 90 FL (80-99); PLATELET COUNT 289 K/UL (150-450); RED BLOOD COUNT 4.57 M/UL (4.70-6.10); RED CELL DISTRIBUTION WIDTH 11.1 % (11.6-14.8); WHITE BLOOD COUNT 9.1 K/UL (4.8-10.8)
[2018-07-28 09:29] LABS: ANION GAP 9 mmol/L (5-15); BLOOD UREA NITROGEN 6 mg/dL (7-18); CALCIUM 8.1 MG/DL (8.5-10.1); CARBON DIOXIDE 28 MMOL/L (21-32); CHLORIDE 88 MMOL/L (98-107); CREATININE 0.4 MG/DL (0.55-1.30); POTASSIUM 2.8 MMOL/L (3.5-5.1); SODIUM 125 MMOL/L (136-145)
[2018-07-28] MEDS: OLANZapine 2.5mg tab ORAL SCH ×3 (09:46→18:17)
[2018-07-28] MEDS: Megace 400mg/10ml Susp ORAL SCH (09:46)
[2018-07-28] MEDS: Metoprolol Succinate XL 50mg tab ORAL SCH ×2 (09:46→20:51)
[2018-07-28] MEDS: Benztropine 1mg tab ORAL SCH ×2 (09:46→20:51)
[2018-07-28] MEDS ORDERED: Vancomycin 1gm/D5W 275ml IVPB SCH ×2 (11:00)
[2018-07-28 12:00] VITALS: BP 155/89
--- NOTE | 2018-07-28 12:14 | Infectious Diseases Prog Note ---
Assessment/Plan Assessment/Plan antibiotics : vancomycin iv, zosyn A 1. acenitobacter sepsis 2. + blood cultures with coag neg staph likely contaminated 3. pneumonia 4. hypertension 5. schizophrenia P 1. start ceftriaxone 2. d/c iv vancomycin, zosyn 3. will follow up cultures 4. US abdomen Subjective ROS Limited/Unobtainable: Yes Allergies: Coded Allergies: No Known Allergies (Unverified , 07/25/18) Objective Vital Signs Last 24 Hour Vital Signs Date Time Temp Pulse Resp B/P (MAP) Pulse Ox O2 Delivery O2 Flow Rate FiO2 07/28/18 09:46 80 161/105 07/28/18 09:03 73 16 96 Room Air 21 07/28/18 09:00 71 20 Room Air 21 07/28/18 09:00 Nasal Cannula 2.0 07/28/18 09:00 71 20 96 Room Air 21 07/28/18 08:00 98.4 80 20 161/105 (123) 95 07/28/18 07:42 79 07/28/18 04:00 85 07/28/18 04:00 97.9 66 18 152/87 (108) 96 07/28/18 00:00 98.2 73 18 165/92 (116) 93 07/28/18 00:00 79 07/27/18 23:44 75 24 Room Air 21 07/27/18 21:00 Nasal Cannula 2.0 07/27/18 20:27 78 160/91 07/27/18 20:00 78 07/27/18 20:00 97.8 78 19 160/91 (114) 95 07/27/18 16:00 97.9 69 20 141/97 (112) 96 07/27/18 15:07 74 Height (Feet): 5 Height (Inches): 8.00 Weight (Pounds): 119 Respiratory/Chest: lungs clear Cardiovascular: normal rate, regular rhythm, no gallop/murmur Abdomen: soft, non tender Extremities: no edema Microbiology Date/Time Source Procedure Growth Status 07/25/18 19:15 Blood Blood Culture - Final Staphylococcus Epidermidis Complete 07/25/18 19:00 Blood Blood Culture - Final Acinetobacter Lwoffii Staphylococcus Epidermidis Complete 07/25/18 21:30 Nose MRSA Culture - Final NO METHICILLIN RESISTANT STAPH AUREUS... Complete 07/27/18 12:30 Urine,Clean Catch Urine Culture - Preliminary NO GROWTH Resulted 07/25/18 21:30 Rectum - Final NO CARBAPENEM-RESISTANT ENTEROBACTERI... Complete 07/25/18 21:30 Rectum VRE Culture - Final NO VANCOMYCIN RESISTANT ENTEROCOCCUS ... Complete Laboratory Tests Test 07/28/18 08:50 White Blood Count 9.1 K/UL (4.8-10.8) Red Blood Count 4.57 M/UL (4.70-6.10) L Hemoglobin 14.0 G/DL (14.2-18.0) L Hematocrit 41.3 % (42.0-52.0) L Mean Corpuscular Volume 90 FL (80-99) Mean Corpuscular Hemoglobin 30.6 PG (27.0-31.0) Mean Corpuscular Hemoglobin Concent 33.8 G/DL (32.0-36.0) Red Cell Distribution Width 11.1 % (11.6-14.8) L Platelet Count 289 K/UL (150-450) Mean Platelet Volume 4.9 FL (6.5-10.1) L Neutrophils (%) (Auto) % (45.0-75.0) Lymphocytes (%) (Auto) % (20.0-45.0) Monocytes (%) (Auto) % (1.0-10.0) Eosinophils (%) (Auto) % (0.0-3.0) Basophils (%) (Auto) % (0.0-2.0) Differential Total Cells Counted 100 Neutrophils % (Manual) 88 % (45-75) H Lymphocytes % (Manual) 7 % (20-45) L Monocytes % (Manual) 4 % (1-10) Eosinophils % (Manual) 0 % (0-3) Basophils % (Manual) 0 % (0-2) Band Neutrophils 1 % (0-8) Platelet Estimate Adequate Platelet Morphology Normal Sodium Level 125 MMOL/L (136-145) L Potassium Level 2.8 MMOL/L (3.5-5.1) L Chloride Level 88 MMOL/L (98-107) L Carbon Dioxide Level 28 MMOL/L (21-32) Anion Gap 9 mmol/L (5-15) Blood Urea Nitrogen 6 mg/dL (7-18) L Creatinine 0.4 MG/DL (0.55-1.30) L Estimat Glomerular Filtration Rate > 60 mL/min (>60) Glucose Level 92 MG/DL (74-106) Calcium Level 8.1 MG/DL (8.5-10.1) L Vancomycin Level Trough 5.3 ug/mL (5.0-12.0) Current Medications Medications (Trade) Dose Ordered Sig/Lance Route PRN Reason Start Time Stop Time Status Last Admin Dose Admin Acetaminophen (Tylenol) 650 mg Q4H PRN ORAL Mild Pain/Temp > 100.5 07/26/18 03:30 08/25/18 03:29 Benztropine Mesylate (Cogentin) 1 mg BID@0900,2100 ORAL 07/26/18 09:00 08/25/18 08:59 07/28/18 09:46 Fluticasone/ Vilanterol (Breo Ellipta /) 1 puff DAILY INH 07/26/18 09:00 08/25/18 08:59 07/28/18 09:03 Haloperidol Lactate (Haldol) 5 mg Q6H PRN IM Agitation 07/26/18 14:45 08/25/18 14:44 07/27/18 19:40 Megestrol Acetate (Megace) 40 mg DAILY ORAL 07/26/18 09:00 08/25/18 08:59 07/28/18 09:46 Metoprolol Succinate (Toprol XL) 50 mg Q12HR ORAL 07/26/18 21:00 08/25/18 20:59 07/28/18 09:46 Metoprolol Tartrate (Lopressor) 5 mg Q5MIN X 3 IVP 07/26/18 15:35 08/25/18 15:34 07/26/18 18:05 Olanzapine (ZyPREXA) 2.5 mg TID ORAL 07/26/18 18:00 08/25/18 17:59 07/28/18 09:46 Piperacillin Sod/ Tazobactam Sod 3.375 gm/Dextrose 110 ml @ 27.5 mls/hr EVERY 8 HOURS IVPB 07/27/18 09:00 08/01/18 08:59 07/28/18 06:13 Potassium Chloride (K-Dur) 40 meq TWICE A DAY ORAL 07/28/18 11:15 08/27/18 11:14 Sodium Chloride 1,000 ml @ 100 mls/hr Q10H IV 07/26/18 03:30 08/25/18 03:29 07/28/18 06:17 Vancomycin HCl (Vanco rx to dose) 1 ea DAILY PRN MISC Per rx protocol 07/27/18 08:00 08/26/18 07:59 Vancomycin HCl 1 gm/Dextrose 275 ml @ 183.708 mls/hr Q8HR@0200,1000,1800 IVPB 07/28/18 11:00 08/02/18 10:59 Reyna Arevalo MD Jul 28, 2018 12:14
--- NOTE | 2018-07-28 12:50 | NUR ---
CASE MANAGEMENT:REVIEW 07/28/18 SI: TACHYARRHYTHMIA. SEPSIS. PNA 97.7 75 19 155/89 96% ON RA NA-125 K-2.8 IS: IVF NS@100/HR IV ROCEPHIN Q24 K-DUR PO BID TOPROL XL PO Q12 ZYPREXA PO TID : TELEMETRY STATUS
--- NOTE | 2018-07-28 12:57 | NUR ---
DISCHARGE PLANNING PATIENT HAS BEEN REFERRED TO [facility] T: [phone] F: [phone] AWAIT ACCEPTANCE AND ROOM ASSIGNMENT Addendum: 07/28/18 at 1519 by EVA HERNANDEZ LVN LVN RECEIVED CALL FROM NAYANA AT [facility] STATING THEY CANNOT ACCEPT PATIENT D/TY [facility]
[2018-07-28] MEDS: cefTRIAXone 1 GM in D5W 55 ML IVPB SCH (15:21)
--- NOTE | 2018-07-28 15:28 | NUR ---
DISCHARGE PLANNING RECEIVED CALL FROM NAYANA COHEN [facility] STATING THEY CANNOT ACCEPT PATIENT D/T [facility]
[2018-07-28 16:00] VITALS: BP 156/107
--- NOTE | 2018-07-28 19:37 | NUR ---
HAND-OFF: Report given to ASIYA Skelton.
--- NOTE | 2018-07-28 19:38 | NUR ---
NURSE NOTES: Received report from ASIYA Garcia. Pt is resting in bed. In no acute distress. IV line intact and patent. Bed in lowest position, call light within reach. Will continue plan of care.
[2018-07-28 20:00] VITALS: BP 138/93
[2018-07-28] MEDS ORDERED: Tamsulosin 0.4mg cap ORAL SCH (21:00)
--- NOTE | 2018-07-28 22:30 | Progress Note ---
DATE: 07/28/2018 SUBJECTIVE: This is an elderly male, currently in the bed, slightly confused, has urinary incontinence. She had a fall last night, but physically doing fine. His heart rate is improved. OBJECTIVE: VITAL SIGNS: Blood pressure 155/89 and pulse 75. No fever. CHEST: Bilaterally clear. CARDIOVASCULAR: Regular rhythm. ABDOMEN: Soft. EXTREMITIES: CCE. NEUROLOGICAL: Generalized weakness. GENITOURINARY: Deferred. LABORATORY DATA: Chemistry panel, sodium 125, potassium 2.8, BUN 96, and creatinine 0.4. ASSESSMENT: 1. Hypokalemia. Potassium replacement. 2. Generalized weakness. 3. Hyponatremia. fluid restriction. PLAN: 1. Continue current treatment. 2. Discharge plan to SNF tomorrow. 3. Discussed with the correctional case manager. Roberto Araiza M.D. DR: JAYE JOB#: [id number] CC:
--- NOTE | 2018-07-28 23:00 | Cardiology Progress Note ---
Assessment/Plan Assessment/Plan 1. Elevation of troponin I level likely due to NSTEMI, type II versus sepsis. Continue conservative management. 2. Left base PNA, continue IV ABx therapy. 3. COPD 4. Diarrhea Subjective Subjective Sinus rhythm at rate of 78. Objective Last 24 Hour Vital Signs Date Time Temp Pulse Resp B/P (MAP) Pulse Ox O2 Delivery O2 Flow Rate FiO2 07/28/18 20:51 78 136/88 07/28/18 20:00 78 20 Room Air 21 07/28/18 16:42 77 07/28/18 16:00 98.4 17 156/107 (123) 95 07/28/18 12:20 80 07/28/18 12:00 97.7 75 19 155/89 (111) 92 07/28/18 09:46 80 161/105 07/28/18 09:03 73 16 96 Room Air 21 07/28/18 09:00 71 20 Room Air 21 07/28/18 09:00 Nasal Cannula 2.0 07/28/18 09:00 71 20 96 Room Air 21 07/28/18 08:00 98.4 80 20 161/105 (123) 95 07/28/18 07:42 79 07/28/18 04:00 85 07/28/18 04:00 97.9 66 18 152/87 (108) 96 07/28/18 00:00 98.2 73 18 165/92 (116) 93 07/28/18 00:00 79 07/27/18 23:44 75 24 Room Air 21 Intake and Output 07/27/18 07/28/18 19:00 07:00 Intake Total 470.0 ml Output Total 450 ml 600 ml Balance 20.0 ml -600 ml Intake Oral 360 ml IV Total 110.0 ml Output Urine Total 450 ml 600 ml # Bowel Movements 1 2D Echo: LVEF 55%, Mild LVH, Mild MR, RVSP 34 mmHg, Grade I LVDD Laboratory Tests Test 07/28/18 08:50 White Blood Count 9.1 K/UL (4.8-10.8) Red Blood Count 4.57 M/UL (4.70-6.10) L Hemoglobin 14.0 G/DL (14.2-18.0) L Hematocrit 41.3 % (42.0-52.0) L Mean Corpuscular Volume 90 FL (80-99) Mean Corpuscular Hemoglobin 30.6 PG (27.0-31.0) Mean Corpuscular Hemoglobin Concent 33.8 G/DL (32.0-36.0) Red Cell Distribution Width 11.1 % (11.6-14.8) L Platelet Count 289 K/UL (150-450) Mean Platelet Volume 4.9 FL (6.5-10.1) L Neutrophils (%) (Auto) % (45.0-75.0) Lymphocytes (%) (Auto) % (20.0-45.0) Monocytes (%) (Auto) % (1.0-10.0) Eosinophils (%) (Auto) % (0.0-3.0) Basophils (%) (Auto) % (0.0-2.0) Differential Total Cells Counted 100 Neutrophils % (Manual) 88 % (45-75) H Lymphocytes % (Manual) 7 % (20-45) L Monocytes % (Manual) 4 % (1-10) Eosinophils % (Manual) 0 % (0-3) Basophils % (Manual) 0 % (0-2) Band Neutrophils 1 % (0-8) Platelet Estimate Adequate Platelet Morphology Normal Sodium Level 125 MMOL/L (136-145) L Potassium Level 2.8 MMOL/L (3.5-5.1) L Chloride Level 88 MMOL/L (98-107) L Carbon Dioxide Level 28 MMOL/L (21-32) Anion Gap 9 mmol/L (5-15) Blood Urea Nitrogen 6 mg/dL (7-18) L Creatinine 0.4 MG/DL (0.55-1.30) L Estimat Glomerular Filtration Rate > 60 mL/min (>60) Glucose Level 92 MG/DL (74-106) Calcium Level 8.1 MG/DL (8.5-10.1) L Vancomycin Level Trough 5.3 ug/mL (5.0-12.0) Microbiology Date/Time Source Procedure Growth Status 07/27/18 12:30 Urine,Clean Catch Urine Culture - Preliminary NO GROWTH Resulted Objective HEENT: Atraumatic, normocephalic,Pupils are equally reactive to light and accommodation. NECK: No carotid bruit. No JVD. CARDIOVASCULAR: Regular rate and rhythm. Normal S1S2. No murmurs, gallops or rubs. LUNGS: Clear to auscultation bilaterally. ABDOMEN: Soft and nontender. No organomegaly. + BS EXTREMITIES: No cyanosis, clubbing no edema. Thom Gleason MD Jul 28, 2018 23:00
--- NOTE | 2018-07-28 23:04 | General Progress Note ---
Assessment/Plan Problem List: (1) Acute metabolic encephalopathy ICD Codes: G93.41 - Metabolic encephalopathy SNOMED: [id number], [id number] Assessment/Plan zyprexa 5mg po tid dc ativan haldol Im prn Subjective Neurologic/Psychiatric: Reports: anxiety, depressed, emotional problems Allergies: Coded Allergies: No Known Allergies (Unverified , 07/25/18) Objective Last 24 Hour Vital Signs Date Time Temp Pulse Resp B/P (MAP) Pulse Ox O2 Delivery O2 Flow Rate FiO2 07/28/18 20:51 78 136/88 07/28/18 20:00 78 20 Room Air 21 07/28/18 16:42 77 07/28/18 16:00 98.4 17 156/107 (123) 95 07/28/18 12:20 80 07/28/18 12:00 97.7 75 19 155/89 (111) 92 07/28/18 09:46 80 161/105 07/28/18 09:03 73 16 96 Room Air 21 07/28/18 09:00 71 20 Room Air 21 07/28/18 09:00 Nasal Cannula 2.0 07/28/18 09:00 71 20 96 Room Air 21 07/28/18 08:00 98.4 80 20 161/105 (123) 95 07/28/18 07:42 79 07/28/18 04:00 85 07/28/18 04:00 97.9 66 18 152/87 (108) 96 07/28/18 00:00 98.2 73 18 165/92 (116) 93 07/28/18 00:00 79 07/27/18 23:44 75 24 Room Air 21 Intake and Output 07/27/18 07/28/18 19:00 07:00 Intake Total 470.0 ml Output Total 450 ml 600 ml Balance 20.0 ml -600 ml Intake Oral 360 ml IV Total 110.0 ml Output Urine Total 450 ml 600 ml # Bowel Movements 1 Laboratory Tests 07/28/18 08:50: White Blood Count 9.1, Red Blood Count 4.57L, Hemoglobin 14.0L, Hematocrit 41.3L , Mean Corpuscular Volume 90, Mean Corpuscular Hemoglobin 30.6, Mean Corpuscular Hemoglobin Concent 33.8, Red Cell Distribution Width 11.1L, Platelet Count 289, Mean Platelet Volume 4.9L, Neutrophils (%) (Auto) , Lymphocytes (%) (Auto) , Monocytes (%) (Auto) , Eosinophils (%) (Auto) , Basophils (%) (Auto) , Differential Total Cells Counted 100, Neutrophils % ( Manual) 88H, Lymphocytes % (Manual) 7L, Monocytes % (Manual) 4, Eosinophils % ( Manual) 0, Basophils % (Manual) 0, Band Neutrophils 1, Platelet Estimate Adequate, Platelet Morphology Normal, Sodium Level 125L, Potassium Level 2.8L, Chloride Level 88L, Carbon Dioxide Level 28, Anion Gap 9, Blood Urea Nitrogen 6L , Creatinine 0.4L, Estimat Glomerular Filtration Rate > 60, Glucose Level 92, Calcium Level 8.1L, Vancomycin Level Trough 5.3 Height (Feet): 5 Height (Inches): 8.00 Weight (Pounds): 119 General Appearance: alert, confused, agitated Yessy Barillas MD Jul 28, 2018 23:04
--- NOTE | 2018-07-28 23:15 | Consultation ---
DATE OF CONSULTATION: 07/28/2018 CONSULTING PHYSICIAN: Oliver Beckett M.D. REFERRING PHYSICIAN: Roberto Araiza M.D. REASON FOR CONSULTATION: For evaluation of retention of Medina trauma. HISTORY OF PRESENT ILLNESS: This is a 63-year-old male, who is a resident of a boarding care facility. The patient was brought to the hospital because of diarrhea, tachycardia, and weakness. Apparently, Medina catheter was placed at the time of admission in the emergency room. The patient pulled out the Medina catheter last night. Urology evaluation was requested. I did talk to the nursing staff. Apparently since the patient has pulled the Medina out, there has not been any significant bleeding reported. He apparently has voided a couple times. I did order for the patient to be monitored. I added Flomax and Proscar later today and postvoid residuals have been reportedly less than 100 mL. Most of the history was obtained from the chart. PAST MEDICAL HISTORY: Significant for chronic obstructive pulmonary disease, depression, agitation, psychiatric history, and BPH history. PAST SURGICAL HISTORY: Unknown. CURRENT MEDICATIONS: Here in the hospital, the patient is on Rocephin, K-Dur, Toprol, Zyprexa, Lopressor, Haldol, Cogentin, and Megace. Flomax and Proscar were added today. ALLERGIES: No known drug allergies. SOCIAL HISTORY: He is a resident of a boarding care facility. FAMILY HISTORY: Unable to obtain. FAMILY HISTORY: Unable to obtain. PHYSICAL EXAMINATION: GENERAL: An elderly male, in no acute distress. Slightly cachectic. VITAL SIGNS: Temperature is 98.4, blood pressure 156/107, pulse 77, and respirations are 17. HEENT: Normocephalic. NECK: Supple. ABDOMEN: Soft. No CVA tenderness. EXTREMITIES: No clubbing or cyanosis. LABORATORY DATA: On admission, UA showed 3+ protein, 5 to 10 rbc's. BUN is 6, creatinine is 0.4, and potassium 2.8. His white blood cell count is 9.1, hemoglobin 14.0, and platelets of 289,000. He had a urine culture, which was negative. He had a blood culture that showed Staphylococcus epidermidis and they sent him back to . DIAGNOSTIC IMAGING STUDIES: The patient had a chest x-ray, which was reviewed. I do not see any renal imaging studies. IMPRESSION: 1. History of urinary retention. 2. Benign prostatic hypertrophy. 3. Neurogenic bladder. 4. Hematuria. 5. Proteinuria. PLAN AND DISCUSSION: Again, the patient did have Medina catheter, which she pulled out. Fortunately, there has not been significant bleeding. He has been voiding with grossly yellow urine with acceptable residuals of less than 100 mL. At this time, I would recommend to continue with Flomax and Proscar as ordered. The patient will be monitored clinically. I would prefer for not to have the Medina because I am afraid that because of his confusion, he may pull it out again. We will consider obtaining a renal imaging study here and an ultrasound or CT scan and cystoscopy can be done in the future as an outpatient. Thank you for this consultation. Oliver Beckett M.D. DR: GAURAV JOB#: [id number] CC:
[2018-07-29] VITALS: BP 131/97
--- NOTE | 2018-07-29 01:00 | Consultation ---
DATE OF CONSULTATION: 07/26/2018 CARDIOLOGY CONSULTATION CONSULTING PHYSICIAN: Thom Gleason M.D. REFERRING PHYSICIAN: Mick Araiza M.D. REASON FOR CONSULTATION: Management of tachycardia as well as hypotension. HISTORY OF PRESENT ILLNESS: The patient is a very unfortunate 63-year-old gentleman, who presents to the hospital with complaint of diarrhea. Upon arrival to the hospital, the patient's heart rate was over 200. He was tachypneic and uncomfortable. He had subjective feeling of palpitation. He is a resident of a nursing facility. His cardiovascular history is significant for history of hypertension. On arrival to the emergency department, blood pressure was 95/83 mmHg and heart rate was 73. A 12-lead electrocardiogram showed multifocal atrial tachycardia with heart rate of [address] and T-wave abnormalities. Initial laboratory in the emergency department revealed leukocytosis with white blood cell count of 15.8, hyponatremia with sodium level of 128, troponin I level of 0.469, which is elevated, and proBNP of 1117. The patient was admitted to telemetry unit. Cardiology consultation was made at request of Dr. Arazia to address elevation of troponin I level, possible diagnosis of non-ST elevation myocardial infarction, hypotension, and tachyarrhythmias. PAST MEDICAL HISTORY: Hypertension, depression, schizophrenia, COPD. PAST SURGICAL HISTORY: None. ALLERGIES: No known drug allergies. REVIEW OF SYSTEMS: HEENT: Denies any headache, diplopia, or blurred vision. CONSTITUTIONAL: He has generalized weakness, but no fever, chills, night sweats, or weight loss. CARDIOVASCULAR: Denies any chest pain, shortness breath, PND, orthopnea, or leg swelling. PULMONARY: Denies any cough, hemoptysis, or wheezing, although he appears to be tachypneic. GENITOURINARY: Denies any hematuria, dysuria, or incontinence. NEUROLOGIC: Denies any motor dysfunction, sensory deficit, or altered speech. GASTROINTESTINAL: He had some complaints of diarrhea, but no nausea, vomiting, or GI bleed. MEDICATIONS: List of medications in the nursing facility includes Cogentin 1 mg p.o. daily, haloperidol 5 mg p.o. daily, lorazepam 1 mg p.o. 3 times a day, and olanzapine 10 mg p.o. daily. PHYSICAL EXAMINATION: VITAL SIGNS: Blood pressure at the time of arrival to the hospital was 95/83, pulse of 73, respirations 18, O2 saturation 94% on room air, and temperature 98.1 degrees Fahrenheit. GENERAL: The patient is a very unfortunate 63-year-old gentleman, , who is in no apparent respiratory distress. HEENT: Atraumatic and normocephalic. Anicteric. Pupils are equal, round, and reactive to light and accommodation. Extraocular muscles intact. NECK: JVP is less than 5 cm. No carotid bruit. Carotid upstroke is 2+ bilaterally. CARDIOVASCULAR: Normal S1, S2. Regular rate and rhythm. No murmurs, gallops, or rubs. Tachycardic. LUNGS: Clear to auscultation bilaterally. ABDOMEN: Soft, nontender, and nondistended. No hepatosplenomegaly. Positive bowel sounds. EXTREMITIES: No evidence of edema, clubbing, or cyanosis. LABORATORY AND DIAGNOSTIC DATA: Laboratory findings, WBC is 15.8, hemoglobin of 15.3, hematocrit of 44.6%, and platelet count is 324. Sodium was 128, potassium 3.6, chloride 90, bicarbonate 24, BUN of 12, creatinine 0.8, glucose is 116, lactic acid 3.1, calcium 8.8, and magnesium 1.8. Troponin I was 0.469 and proBNP of 1117. Chest x-ray showed mild patchy infiltration suspected in the left lung base. A 2D echocardiography showed LVEF of about 55%, mild left ventricular hypertrophy, grade 1 LV diastolic dysfunction, mild mitral regurgitation, and right ventricular systolic pressure measured at approximately 35 mmHg. ASSESSMENT AND PLAN: The patient is a very unfortunate 63-year-old gentleman, who is seen in Cardiology consultation. 1. Slight elevation of troponin I level, could be demand ischemia or non-ST elevation myocardial infarction type 2. At this time, I would continue conservative management with aspirin, statin, and beta-miesha. 2. Normal left ventricular systolic function with LVEF of about 55%. 3. History of hypertension. 4. History of COPD. 5. History of schizophrenia. I would like to thank, Dr. Araiza, for allowing me to participate in the care of this patient. Thom Victorino, M.D. DR: JONATHON JOB#: [id number] CC:
[2018-07-29 04:00] VITALS: BP 132/94
--- NOTE | 2018-07-29 07:23 | NUR ---
HAND-OFF: Report given to ASIYA Loyola.
--- NOTE | 2018-07-29 07:28 | NUR ---
NURSE NOTES: Received report from ASIYA Skelton. Patient in bed resting, no active s/s cardiac, respiratory distress noticed at this time. Patient confuse occasionally tries to get up. SR with HR 79, patient on room air. IV site on Right FA 20G asymptomatic, patent, intact, IV fluid running at prescribed rate. Endorsed patient schedule for US ABD but patient ate the early breakfast, will call US. Bed in lowest position, side rails upx2, call light within reach. Will continue to monitor.
[2018-07-29 07:46] LABS: ANION GAP 10 mmol/L (5-15); BLOOD UREA NITROGEN 7 mg/dL (7-18); CALCIUM 8.6 MG/DL (8.5-10.1); CARBON DIOXIDE 25 MMOL/L (21-32); CHLORIDE 93 MMOL/L (98-107); CREATININE 0.4 MG/DL (0.55-1.30); POTASSIUM 3.6 MMOL/L (3.5-5.1); SODIUM 128 MMOL/L (136-145)
[2018-07-29 08:00] VITALS: BP 119/78
--- NOTE | 2018-07-29 08:54 | Urology Progress Note ---
Assessment/Plan Assessment/Plan 1. History of urinary retention. 2. Benign prostatic hypertrophy. 3. Neurogenic bladder. 4. Hematuria. 5. Proteinuria. monitor clinically voiding no gross hematuria cont flomax and proscar insert rachel or IC PRN cysto later f/u on urine cx Subjective Allergies: Coded Allergies: No Known Allergies (Unverified , 07/25/18) Subjective all noted, voiding, urine reported grossly yellow Objective Last 24 Hour Vital Signs Date Time Temp Pulse Resp B/P (MAP) Pulse Ox O2 Delivery O2 Flow Rate FiO2 07/29/18 04:00 98.2 78 18 132/94 (107) 95 07/29/18 03:52 78 07/29/18 00:00 75 07/29/18 00:00 99.0 75 18 131/97 (108) 95 07/28/18 21:00 Room Air 07/28/18 20:51 78 136/88 07/28/18 20:00 98.1 80 17 138/93 (108) 95 07/28/18 20:00 80 07/28/18 20:00 78 20 Room Air 21 07/28/18 16:42 77 07/28/18 16:00 98.4 17 156/107 (123) 95 07/28/18 12:20 80 07/28/18 12:00 97.7 75 19 155/89 (111) 92 07/28/18 09:46 80 161/105 07/28/18 09:03 73 16 96 Room Air 21 07/28/18 09:00 71 20 Room Air 21 07/28/18 09:00 Nasal Cannula 2.0 07/28/18 09:00 71 20 96 Room Air 21 Intake and Output 07/28/18 07/29/18 18:59 06:59 Intake Total 120 ml Balance 120 ml Intake Oral 120 ml # Voids 4 2 Microbiology Date/Time Source Procedure Growth Status 07/25/18 19:15 Blood Blood Culture - Final Staphylococcus Epidermidis Complete 07/25/18 21:30 Nose MRSA Culture - Final NO METHICILLIN RESISTANT STAPH AUREUS... Complete 07/27/18 12:30 Urine,Clean Catch Urine Culture - Preliminary NO GROWTH AFTER 24 HOURS Resulted 07/25/18 21:30 Rectum - Final NO CARBAPENEM-RESISTANT ENTEROBACTERI... Complete Current Medications Medications (Trade) Dose Ordered Sig/Lance Route PRN Reason Start Time Stop Time Status Last Admin Dose Admin Acetaminophen (Tylenol) 650 mg Q4H PRN ORAL Mild Pain/Temp > 100.5 07/26/18 03:30 08/25/18 03:29 Benztropine Mesylate (Cogentin) 1 mg BID@0900,2100 ORAL 07/26/18 09:00 08/25/18 08:59 07/28/18 20:51 Ceftriaxone Sodium 1 gm/ Dextrose 55 ml @ 110 mls/hr Q24H IVPB 07/28/18 13:00 08/04/18 12:59 07/28/18 15:21 Finasteride (Proscar) 5 mg DAILY ORAL 07/29/18 09:00 08/28/18 08:59 Fluticasone/ Vilanterol (Breo Ellipta 100/25) 1 puff DAILY INH 07/26/18 09:00 08/25/18 08:59 07/28/18 09:03 Haloperidol Lactate (Haldol) 5 mg Q6H PRN IM Agitation 07/26/18 14:45 08/25/18 14:44 07/27/18 19:40 Megestrol Acetate (Megace) 40 mg DAILY ORAL 07/26/18 09:00 08/25/18 08:59 07/28/18 09:46 Metoprolol Succinate (Toprol XL) 50 mg Q12HR ORAL 07/26/18 21:00 08/25/18 20:59 07/28/18 20:51 Metoprolol Tartrate (Lopressor) 5 mg Q5MIN X 3 IVP 07/26/18 15:35 08/25/18 15:34 07/26/18 18:05 Olanzapine (ZyPREXA) 2.5 mg TID ORAL 07/26/18 18:00 08/25/18 17:59 07/28/18 18:17 Potassium Chloride (K-Dur) 40 meq TWICE A DAY ORAL 07/28/18 11:15 08/27/18 11:14 07/28/18 18:17 Sodium Chloride 1,000 ml @ 100 mls/hr Q10H IV 07/26/18 03:30 08/25/18 03:29 07/29/18 02:01 Tamsulosin HCl (Flomax) 0.4 mg BEDTIME ORAL 07/28/18 21:00 08/27/18 20:59 07/28/18 20:51 Laboratory Tests 07/29/18 05:40: Sodium Level 128L, Potassium Level 3.6, Chloride Level 93L, Carbon Dioxide Level 25, Anion Gap 10, Blood Urea Nitrogen 7, Creatinine 0.4L, Estimat Glomerular Filtration Rate > 60, Glucose Level 72L, Calcium Level 8.6 Height (Feet): 5 Height (Inches): 8.00 Weight (Pounds): 119 Objective exam stable Oliver Beckett MD Jul 29, 2018 08:54
[2018-07-29] MEDS: Benztropine 1mg tab ORAL SCH ×2 (09:00→09:34)
[2018-07-29] MEDS: Metoprolol Succinate XL 50mg tab ORAL SCH ×2 (09:00→09:35)
[2018-07-29] MEDS: Megace 400mg/10ml Susp ORAL SCH ×2 (09:00→09:34)
[2018-07-29] MEDS: Breo Ellipta 100/25mcg - 14 dose INH SCH (09:00)
[2018-07-29] MEDS: OLANZapine 2.5mg tab ORAL SCH ×5 (09:00→17:45)
--- NOTE | 2018-07-29 09:32 | Pulmonology Progress Note ---
Assessment/Plan Assessment/Plan IMPRESSION: 1. Chronic obstructive pulmonary disease. 2. Hypoxemia with low pO2. Now resolved. 3. Diarrhea. DISCUSSION: Continue broad-spectrum antibiotics, vancomycin and Zosyn. No clear infectious pulmonary source. He has also received beta-blockers for tachycardia. Continue with the medications. I will follow as engineering specialist. Currently his status is stable. Subjective Interval Events: None new Constitutional: Reports: no symptoms HEENT: Repors: no symptoms Respiratory: Reports: no symptoms Cardiovascular: Reports: no symptoms Gastrointestinal/Abdominal: Reports: no symptoms Allergies: Coded Allergies: No Known Allergies (Unverified , 07/25/18) Objective Last 24 Hour Vital Signs Date Time Temp Pulse Resp B/P (MAP) Pulse Ox O2 Delivery O2 Flow Rate FiO2 07/29/18 09:25 79 22 Room Air 21 07/29/18 09:22 77 22 93 Room Air 21 07/29/18 09:22 Room Air 21 07/29/18 04:00 98.2 78 18 132/94 (107) 95 07/29/18 03:52 78 07/29/18 00:00 75 07/29/18 00:00 99.0 75 18 131/97 (108) 95 07/28/18 21:00 Room Air 07/28/18 20:51 78 136/88 07/28/18 20:00 98.1 80 17 138/93 (108) 95 07/28/18 20:00 80 07/28/18 20:00 78 20 Room Air 21 07/28/18 16:42 77 07/28/18 16:00 98.4 17 156/107 (123) 95 07/28/18 12:20 80 07/28/18 12:00 97.7 75 19 155/89 (111) 92 07/28/18 09:46 80 161/105 Intake and Output 07/28/18 07/29/18 18:59 06:59 Intake Total 120 ml Balance 120 ml Intake Oral 120 ml # Voids 4 2 General Appearance: no acute distress HEENT: normocephalic Respiratory/Chest: chest wall non-tender, lungs clear Cardiovascular: normal peripheral pulses, normal rate Abdomen: normal bowel sounds Microbiology Date/Time Source Procedure Growth Status 07/27/18 12:30 Urine,Clean Catch Urine Culture - Preliminary NO GROWTH AFTER 24 HOURS Resulted Laboratory Tests 07/29/18 05:40: Sodium Level 128L, Potassium Level 3.6, Chloride Level 93L, Carbon Dioxide Level 25, Anion Gap 10, Blood Urea Nitrogen 7, Creatinine 0.4L, Estimat Glomerular Filtration Rate > 60, Glucose Level 72L, Calcium Level 8.6 Current Medications Medications (Trade) Dose Ordered Sig/Lance Route PRN Reason Start Time Stop Time Status Last Admin Dose Admin Acetaminophen (Tylenol) 650 mg Q4H PRN ORAL Mild Pain/Temp > 100.5 07/26/18 03:30 08/25/18 03:29 Benztropine Mesylate (Cogentin) 1 mg BID@0900,2100 ORAL 07/26/18 09:00 08/25/18 08:59 07/28/18 20:51 Ceftriaxone Sodium 1 gm/ Dextrose 55 ml @ 110 mls/hr Q24H IVPB 07/28/18 13:00 08/04/18 12:59 07/28/18 15:21 Finasteride (Proscar) 5 mg DAILY ORAL 07/29/18 09:00 08/28/18 08:59 Fluticasone/ Vilanterol (Breo Ellipta 100/25) 1 puff DAILY INH 07/26/18 09:00 08/25/18 08:59 07/28/18 09:03 Haloperidol Lactate (Haldol) 5 mg Q6H PRN IM Agitation 07/26/18 14:45 08/25/18 14:44 07/27/18 19:40 Megestrol Acetate (Megace) 40 mg DAILY ORAL 07/26/18 09:00 08/25/18 08:59 07/28/18 09:46 Metoprolol Succinate (Toprol XL) 50 mg Q12HR ORAL 07/26/18 21:00 08/25/18 20:59 07/28/18 20:51 Metoprolol Tartrate (Lopressor) 5 mg Q5MIN X 3 IVP 07/26/18 15:35 08/25/18 15:34 07/26/18 18:05 Olanzapine (ZyPREXA) 2.5 mg TID ORAL 07/26/18 18:00 08/25/18 17:59 07/28/18 18:17 Potassium Chloride (K-Dur) 40 meq TWICE A DAY ORAL 07/28/18 11:15 08/27/18 11:14 07/28/18 18:17 Sodium Chloride 1,000 ml @ 100 mls/hr Q10H IV 07/26/18 03:30 08/25/18 03:29 07/29/18 02:01 Tamsulosin HCl (Flomax) 0.4 mg BEDTIME ORAL 07/28/18 21:00 08/27/18 20:59 07/28/18 20:51 David Cage MD Jul 29, 2018 09:32
--- NOTE | 2018-07-29 09:54 | NUR ---
DISCHARGE PLAN [place] [facility] DECLINED TO ACCEPT THIS PATIENT DR DE ANDA NOTIFIED INSTRUCTED TO REFER TO [facility] FAXED
--- NOTE | 2018-07-29 10:13 | NUR ---
NURSE NOTES: Per [facility] will not accept patient. Pending placement at two alternate facilities. Milla BRADEN notified.
--- NOTE | 2018-07-29 10:30 | NUR ---
6 Addendum: 07/29/18 at 1112 by RASHAD ALMAGUER RN NURSE NOTES: Paged Dr. Ross regarding patient refused twice US abdomen. Awaiting for call back. Will continue to monitor.
--- NOTE | 2018-07-29 13:14 | NUR ---
RD ASSESSMENT & RECOMMENDATIONS SEE CARE ACTIVITY FOR COMPLETE ASSESSMENT DAILY ESTIMATED NEEDS: Needs based on Underweight, wound, pulmonary 54kg 30-35 kcals/kg 8654-7320 total kcals 1.25-1.5 g protein/kg 68-81 g total protein 1L per MD NUTRITION DIAGNOSIS: Increased kcal and pro needs r/t wound healing as evidenced by pt w/ Non-blanchable erythema bilat heels and sacrum. CURRENT DIET:Cardiac PO DIET RECOMMENDATIONS: Regular diet, texture as tolerated ADDITIONAL RECOMMENDATIONS: 1) RE-calibrate bed scale for accurate CBW 2) Snacks in b/w meals 3) Monitor po intake/ on megace 4) Wound care: JERROD BID in 4oz water + MVI x1
[2018-07-29] MEDS: cefTRIAXone 1 GM in D5W 55 ML IVPB SCH (13:38)
--- NOTE | 2018-07-29 14:47 | NUR ---
DISCHARGE PLAN PATIENT WILL DISCHARGE TO [address] [place] [address] T: [phone] FOR NURSE TO NURSE REPORT [facility] HAS BEEN ARRANGED FOR 1730 PRODUCTION PAINTER
--- NOTE | 2018-07-29 15:12 | NUR ---
NURSE NOTES: Paged Dr. Ross second time regarding patient refused US abd twice and if still want to take US ABD, awaiting for call back. Will continue to monitor.
--- NOTE | 2018-07-29 15:49 | NUR ---
NURSE NOTES: Spoke with ASIYA Norman from [facility] regarding patient will discharge today to room 150A and the estimated time of pickling operator will be 1730. Belonging list checked, patient unable to sign. Will continue to monitor.
[2018-07-29 16:00] VITALS: BP 121/76
--- NOTE | 2018-07-29 16:00 | NUR ---
NURSE NOTES: Received callback from Dr. Ross, per Dr. Ross can cancel the US ABD. Order noted entered, carried out.
--- NOTE | 2018-07-29 17:03 | NUR ---
NURSE NOTES: Transfer order to 4E cancelled due to patient will be discharge to [facility] room 150 A belt picker time 1730.
--- NOTE | 2018-07-29 17:43 | NUR ---
NURSE NOTES: Patient discharged to [facility] room 150A per Dr. Araiza. Patient ID removed and placed in shredder, IV removed, angle shear operator returned to refrigeration tech. Patient taken by ambulance, belongings given to ambulance personnels in stable condition. Family member made aware patient will discharge to [facility].
--- NOTE | 2018-07-29 21:45 | Progress Note ---
DATE: 07/29/2018 SUBJECTIVE: The patient is a 63-year-old man, currently in bed, less comfortable, generalized weakness. No fever or chills. OBJECTIVE: VITAL SIGNS: Stable. CHEST: Bilaterally clear. CARDIOVASCULAR: Regular rhythm. ABDOMEN: Soft. EXTREMITIES: CCE. ASSESSMENT: 1. tachycardia. 2. Hypertension. 3. Chronic obstructive pulmonary disease. PLAN: The patient is clinically doing better. Still generalized weakness. Going to live at the longterm. Discharge medications, see med list. The patient is mostly bedridden. Roberto Araiza M.D. DR: JAYE JOB#: [id number] CC:
--- NOTE | 2018-07-29 23:56 | Cardiology Progress Note ---
Assessment/Plan Assessment/Plan 1. Elevation of troponin I level likely due to NSTEMI, type II versus sepsis. Continue conservative management. 2. Left base PNA, continue IV ABx therapy. 3. COPD 4. Diarrhea Subjective Subjective Sinus rhythm at rate of 85. Objective Last 24 Hour Vital Signs Date Time Temp Pulse Resp B/P (MAP) Pulse Ox O2 Delivery O2 Flow Rate FiO2 07/29/18 16:00 96.5 85 18 121/76 (91) 100 07/29/18 16:00 69 07/29/18 12:00 86 07/29/18 12:00 71 07/29/18 09:25 79 22 Room Air 21 07/29/18 09:22 77 22 93 Room Air 21 07/29/18 09:22 Room Air 21 07/29/18 09:00 Room Air 07/29/18 09:00 79 119/78 07/29/18 08:00 83 07/29/18 08:00 79 18 119/78 (92) 95 07/29/18 04:00 98.2 78 18 132/94 (107) 95 07/29/18 03:52 78 07/29/18 00:00 75 07/29/18 00:00 99.0 75 18 131/97 (108) 95 Intake and Output 07/28/18 07/29/18 19:00 07:00 Intake Total 120 ml Balance 120 ml Intake Oral 120 ml # Voids 4 2 2D Echo: LVEF 55%, Mild LVH, Mild MR, RVSP 34 mmHg, Grade I LVDD Laboratory Tests Test 07/29/18 05:40 Sodium Level 128 MMOL/L (136-145) L Potassium Level 3.6 MMOL/L (3.5-5.1) Chloride Level 93 MMOL/L (98-107) L Carbon Dioxide Level 25 MMOL/L (21-32) Anion Gap 10 mmol/L (5-15) Blood Urea Nitrogen 7 mg/dL (7-18) Creatinine 0.4 MG/DL (0.55-1.30) L Estimat Glomerular Filtration Rate > 60 mL/min (>60) Glucose Level 72 MG/DL (74-106) L Calcium Level 8.6 MG/DL (8.5-10.1) Microbiology Date/Time Source Procedure Growth Status 07/27/18 12:30 Urine,Clean Catch Urine Culture - Preliminary NO GROWTH AFTER 24 HOURS Resulted Objective HEENT: Atraumatic, normocephalic,Pupils are equally reactive to light and accommodation. NECK: No carotid bruit. No JVD. CARDIOVASCULAR: Regular rate and rhythm. Normal S1S2. No murmurs, gallops or rubs. LUNGS: Clear to auscultation bilaterally. ABDOMEN: Soft and nontender. No organomegaly. + BS EXTREMITIES: No cyanosis, clubbing no edema. Thom Gleason MD Jul 29, 2018 23:56
--- NOTE | 2018-08-02 11:43 | Discharge Summary ---
Discharge Summary Discharge Summary _ DATE OF ADMISSION: 07/25/2018 DATE OF DISCHARGE: 07/29/2018 DISCHARGED BY: Dr. Roberto Araiza CONSULTANTS: Dr. Thom Arevalo BRIEF HOSPITAL COURSE: Patient is a 63-year-old male, who lives in a [facility], presented to the emergency room due to diarrhea, tachycardia, ACS, COPD and generalized weakness. On initial evaluation at the ED, patient's heart rate was over 200. He was tachypneic and appeared uncomfortable. Blood work showed WBC of 16, hemoglobin 15, hematocrit 44. Sodium 128 potassium 3.6. Lactic acid was 3.10. Troponin 0.469. ProBNP 1117. EKG showed wide complex tachycardia. He was given low- dose Cardizem. Chest x-ray showed emphysematous changes and airspace opacity at the left base concerning for pneumonia. He was then admitted for evaluation of tachyarrhythmia, COPD, ACS. Patient has a history of schizophrenia and was confused and agitated. He was easily agitated and had waxing and waning of consciousness. Psychiatrist was consulted. He was given Zyprexa 5 mg p.o. 3 times daily. Ativan was discontinued. He was placed on restraints for safety. He was initially started on ceftriaxone. Infectious disease specialist was consulted. Patient has blood cultures showing gram-positive cocci and gram- negative rods. Ceftriaxone was discontinued. He was started on IV vancomycin and Zosyn. [employer] Professor was consulted due to history of COPD. He was continued on Breo. Blood culture showed growth of Acinetobacter and coagulase-negative staph. Coagulase negative staph, likely contaminated. Vancomycin and Zosyn were discontinued. He was restarted on ceftriaxone. Rabies Inspector was consulted. Elevation of troponin I level, likely due to NSTEMI, type II versus sepsis. He was given conservative management. He was given with beta-miesha. Echocardiogram showed normal ventricular systolic function with LVEF of about 55%. While in the hospital, patient pulled out Medina catheter. Urologist was consulted. There was no gross hematuria noted. Post void residual was less than 100. He was given Flomax and Proscar. He was able to void freely with acceptable residual. He was recommended to just keep the Medina catheter out. There was no fever and leukocytosis resolved. Vital signs were stable, heart rate controlled. Repeat chest x-ray showed infiltrate suspected on the left lung base. He was eventually discharged to a custodial. FINAL DIAGNOSES: Acinetobacter sepsis Elevation of troponin I level likely due to NSTEMI type II and sepsis Tachycardia Hypertension COPD Left base pneumonia, present on admission Hypoxemia BPH Neurogenic bladder Hematuria Proteinuria Acute metabolic encephalopathy Diarrhea DISPOSITION: Patient was discharged to a SNF. DISCHARGE MEDICATIONS: Refer to Discharge Medication List. I have been assigned to complete a discharge summary on this account, I was not involved with the patient's management. Urmila Triana NP Aug 02, 2018 11:43
== END 2018-07-29 17:46 | DRG 871 ==
LOC: EDBD 18:16 → EMR 18:40 → 2E 21:28 → EDBEDREQ 07-26 00:01 → 2E 07-27 22:31
DX: A41.59 Other Gram-negative sepsis (principal); G93.41 Metabolic encephalopathy; J18.9 Pneumonia, unspecified organism; I21.A1 Myocardial infarction type 2; R00.0 Tachycardia, unspecified; I10 Essential (primary) hypertension; J44.9 Chronic obstructive pulmonary disease, unspecified; F20.9 Schizophrenia, unspecified; R09.02 Hypoxemia; N40.0 Benign prostatic hyperplasia without lower urinary tract symptoms; N31.9 Neuromuscular dysfunction of bladder, unspecified; R31.9 Hematuria, unspecified; R19.7 Diarrhea, unspecified; F32.9 Major depressive disorder, single episode, unspecified
CPT/HCPCS: 36415; 36600; 71045; 80048; 80053; 80202; 81003; 82550; 82553; 82803; 83605; 83690; 83735; 83880; 84100; 84484; 85007; 85025; 85610; 85730; 87040; 87081; 87086; 87181; 93005; 93306; 94640; 94664; 96374; 96375; 99291; J8499

== ENCOUNTER 2018-10-27 15:07 | Inpatient (IN) | payer MEDICARE, OTHER ==
[~2018-10-27] VITALS: Ht 170.2 cm; Wt 63.5 kg
[~2018-10-27 15:07] MED LIST: BENZTROPINE ME0.5 MG PO; HALOPERIDOL5 MG ORAL; LORAZEPAM1 MG ORAL; OLANZAPINE20 MG ORAL
[2018-10-27] MEDS ORDERED: PROSCAR5 MG ORAL (15:25)
[2018-10-27] MEDS ORDERED: POTASSIUM CHLO20 ME2 ORAL (15:25)
[2018-10-27] MEDS ORDERED: METOPROLOL SUCC50 MG ORAL (15:25)
--- NOTE | 2018-10-27 15:28 | Emergency Room Report ---
History of Present Illness General Chief Complaint: Altered Level of Consciousness Source: Patient Present Illness HPI The patient is sent in for a psychiatric and medical evaluation. At the assisted living facility he apparently was trying to walk away. The patient denies any suicidal ideation at this time. He claims he is taking his medications. The patient denies any pain in his body. He states his been eating okay. He does not answer if he is been losing weight. He is moving his bowels without difficulty or constipation. He also is urinating without difficulty or dysuria. He denies any joint pain. He denies headache. Patient has a psychiatric history and is taking psychiatric medications at this time. Allergies: Coded Allergies: No Known Allergies (Unverified , 07/25/18) Patient History Past Medical History: see triage record Social History: Reports: smoking Social History Narrative Convalescent, born in [place] Reviewed Nursing Documentation: PMH: Agreed; PSxH: Agreed Nursing Documentation-PMH Past Medical History: No History, Except For Hx Cardiac Problems: Yes Hx Hypertension: Yes Hx COPD: Yes Review of Systems All Other Systems: negative except mentioned in HPI Physical Exam Vital Signs Date Time Temp Pulse Resp B/P (MAP) Pulse Ox O2 Delivery O2 Flow Rate FiO2 10/27/18 15:08 98.1 57 17 129/77 (94) 91 Room Air Sp02 EP Interpretation: reviewed, normal General Appearance: no apparent distress, GCS 15, thin Head: normocephalic Eyes: bilateral eye normal inspection, bilateral eye PERRL, bilateral eye EOMI ENT: moist mucus membranes - Poor dentition Neck: supple Respiratory: lungs clear, normal breath sounds, decreased breath sounds Cardiovascular #1: bradycardia Cardiovascular #2: 2+ radial (R) Gastrointestinal: normal inspection, normal bowel sounds, non tender, no mass, non-distended, scaphoid Genitourinary: no CVA tenderness Musculoskeletal: back normal, gait/station normal, normal range of motion Neurologic: alert, domestic housekeeper III-XII nml as tested, motor strength/tone normal, DTRs symmetric, sensory intact, other - Thing speech, oriented - Comes to Psychiatric: no suicidal/homicidal ideation, depressed affect Skin: warm/dry, other - Onikolysis and tobacco stained Medical Decision Making Medical: COPD Behavioral: Depression Reaction to Intervention: No change Restraint Reassesment I, Silvino Montenegro MD, have personally evaluated this patient. Laboratory tests have been reviewed and addressed accordingly. The patient is deemed to present a danger to themselves and/or others. This is based on the exam, history and observed or reported behavior. Attempts for non-invasive measures have been considered and/or attempted, however, have been futile. It is in the best interest of the nursing staff, the patient, and others involved in this patient's care that behavioral restraints be applied. Patient evaluation reveals the following: removing monitors and IV and not respond to attempts to stop Diagnostic Impression: Primary Impression: Altered level of consciousness Additional Impression: COPD (chronic obstructive pulmonary disease) Qualified Codes: J43.9 - Emphysema, unspecified ER Course The patient presents with altered mentation. He is been admitted here before for acute encephalopathy. Differential includes infection, electrolyte imbalance, medication excess or imbalance, exacerbation of underlying schizoaffective disorder, failure to thrive and malnutrition amongst others. The patient will be evaluated with EKG, chest x-ray and labs. The patient will receive IV hydration. EKG without injury. CXR COPD and scarring. Labs unremarkable. Patient removing all monitors and attempt to remove IV. Not respond to requests not to. Non-behavioral restraints and sedation ordered. Slight retractions. Duoneb ordered. Improved with breathing treatment and sedation. Discussed with Dr. Lizarraga. Admit med. Laboratory Tests Test 10/27/18 15:27 10/27/18 16:25 White Blood Count 7.3 K/UL (4.8-10.8) Red Blood Count 4.74 M/UL (4.70-6.10) Hemoglobin 14.8 G/DL (14.2-18.0) Hematocrit 43.2 % (42.0-52.0) Mean Corpuscular Volume 91 FL (80-99) Mean Corpuscular Hemoglobin 31.3 PG (27.0-31.0) H Mean Corpuscular Hemoglobin Concent 34.4 G/DL (32.0-36.0) Red Cell Distribution Width 11.4 % (11.6-14.8) L Platelet Count 316 K/UL (150-450) Mean Platelet Volume 4.6 FL (6.5-10.1) L Neutrophils (%) (Auto) 62.2 % (45.0-75.0) Lymphocytes (%) (Auto) 28.1 % (20.0-45.0) Monocytes (%) (Auto) 5.6 % (1.0-10.0) Eosinophils (%) (Auto) 2.4 % (0.0-3.0) Basophils (%) (Auto) 1.8 % (0.0-2.0) Sodium Level 132 MMOL/L (136-145) L Potassium Level 4.6 MMOL/L (3.5-5.1) Chloride Level 97 MMOL/L (98-107) L Carbon Dioxide Level 27 MMOL/L (21-32) Anion Gap 8 mmol/L (5-15) Blood Urea Nitrogen 15 mg/dL (7-18) Creatinine 0.5 MG/DL (0.55-1.30) L Estimate Glomerular Filtration Rate > 60 mL/min (>60) Glucose Level 106 MG/DL (74-106) Calcium Level 9.4 MG/DL (8.5-10.1) Total Bilirubin 0.2 MG/DL (0.2-1.0) Aspartate Amino Transferase (AST) 13 U/L (15-37) L Alanine Aminotransferase (ALT) 21 U/L (12-78) Alkaline Phosphatase 65 U/L (46-116) Total Creatine Kinase 50 U/L (26-308) Troponin I 0.000 ng/mL (0.000-0.056) Total Protein 6.8 G/DL (6.4-8.2) Albumin 3.6 G/DL (3.4-5.0) Globulin 3.2 g/dL Albumin/Globulin Ratio 1.1 (1.0-2.7) Thyroid Stimulating Hormone (TSH) 0.585 uiU/mL (0.358-3.740) Salicylates Level 2.7 ug/mL (2.8-20) L Acetaminophen Level < 2 MCG/ML (10-30) L Serum Alcohol < 3 mg/dL Urine Color Pale yellow Urine Appearance Clear Urine pH 7 (4.5-8.0) Urine Specific Amity 1.010 (1.005-1.035) Urine Protein Negative (NEGATIVE) Urine Glucose (UA) Negative (NEGATIVE) Urine Ketones Negative (NEGATIVE) Urine Blood Negative (NEGATIVE) Urine Nitrite Negative (NEGATIVE) Urine Bilirubin Negative (NEGATIVE) Urine Urobilinogen Normal MG/DL (0.0-1.0) Urine Leukocyte Esterase Negative (NEGATIVE) Urine Opiates Screen Negative (NEGATIVE) Urine Barbiturates Screen Negative (NEGATIVE) Phencyclidine (PCP) Screen Negative (NEGATIVE) Urine Amphetamines Screen Negative (NEGATIVE) Urine Benzodiazepines Screen Negative (NEGATIVE) Urine Cocaine Screen Negative (NEGATIVE) Urine Marijuana (THC) Screen Negative (NEGATIVE) EKG Diagnostic Results Rate: bradycardiac Rhythm: NSR ST Segments: no acute changes - LAE Rhythm Strip Diag. Results EP Interpretation: yes Rhythm: no PVC's, no ectopy, other - carlos 57 Chest X-Ray Diagnostic Results Chest X-Ray Diagnostic Results : Chest X-Ray Ordered: Yes # of Views/Limited/Complete: 1 View Indication: Other EP Interpretation: Yes Interpretation: no consolidation, no effusion, no pneumothorax, other - scarring L base, COPD, no infiltrate Impression: Other Electronically Signed by: Electronically signed by Silvino Montenegro MD Last Vital Signs Date Time Temp Pulse Resp B/P (MAP) Pulse Ox O2 Delivery O2 Flow Rate FiO2 10/27/18 18:17 98.1 50 20 153/84 100 Room Air 21 Status: improved Disposition: ADMITTED INPATIENT Condition: Serious Silvino Montenegro MD Oct 27, 2018 15:28
[2018-10-27 15:36] VITALS: BP 143/79
--- NOTE | 2018-10-27 15:39 | NUR ---
ED Nurse Note: Pt MICAELA from [facility] due to ALOC, not communicating with staffs and " tried to walk away from facility", it was his first day at [facility]. Pt does not answer any questions by staffs upon arrival. HR in the 50s, ERMD aware. Other VSS. Will cont to monitor.
--- NOTE | 2018-10-27 15:41 | NUR ---
ED Nurse Note: Pt down to X-ray and CT for imaging.
[2018-10-27 15:42] LABS: BASOPHILS % (AUTO) 1.8 % (0.0-2.0); EOSINOPHILS % (AUTO) 2.4 % (0.0-3.0); HEMATOCRIT 43.2 % (42.0-52.0); HEMOGLOBIN 14.8 G/DL (14.2-18.0); LYMPHOCYTES % (AUTO) 28.1 % (20.0-45.0); MEAN CORPUSCULAR VOLUME 91 FL (80-99); MONOCYTES % (AUTO) 5.6 % (1.0-10.0); NEUTROPHILS % (AUTO) 62.2 % (45.0-75.0); PLATELET COUNT 316 K/UL (150-450); RED BLOOD COUNT 4.74 M/UL (4.70-6.10); RED CELL DISTRIBUTION WIDTH 11.4 % (11.6-14.8); WHITE BLOOD COUNT 7.3 K/UL (4.8-10.8)
--- NOTE | 2018-10-27 15:52 | NUR ---
ED Nurse Note: Pt back from imaging, no sign of acute distress.
[2018-10-27] MEDS ORDERED: DiphenhydrAMINE 50mg/ml Inj ONE (15:59)
[2018-10-27 16:00] LABS: ANION GAP 8 mmol/L (5-15); BLOOD UREA NITROGEN 15 mg/dL (7-18); CALCIUM 9.4 MG/DL (8.5-10.1); CARBON DIOXIDE 27 MMOL/L (21-32); CHLORIDE 97 MMOL/L (98-107); CREATININE 0.5 MG/DL (0.55-1.30); POTASSIUM 4.6 MMOL/L (3.5-5.1); SODIUM 132 MMOL/L (136-145)
[2018-10-27] MEDS ORDERED: Haloperidol 5mg/ml Inj IM ONE (16:00)
[2018-10-27] MEDS ORDERED: DiphenhydrAMINE 50mg/ml Inj IM ONE (16:00)
[2018-10-27] MEDS ORDERED: Haloperidol 5mg/ml Inj ONE (16:00)
[2018-10-27] MEDS ORDERED: Albuterol/Ipratropium 3ml neb HHN ONE (16:00)
--- NOTE | 2018-10-27 16:01 | Diagnostic Imaging Report ---
Indication: Altered level of consciousness Technique: Contiguous 5 mm thick transaxial imaging of the head obtained in a Siemens Sensation [address] scanner. Soft tissue and bone windows generated. Automatic Exposure Control was utilized. Total Dose length Product (DLP): 1559.[address] Dose Index Volume (CTDIvol): 70.38 mGy Comparison: none Findings: There is moderate prominence of the ventricles, basal cisterns, and cerebral sulci consistent with atrophy. Moderate, nonspecific, white matter hypoattenuation is noted throughout the brain consistent with chronic small vessel disease. There is no midline shift, edema, acute hemorrhage, mass effect, or abnormal extra-axial fluid collections. Bones are unremarkable. Impression: No acute intracranial bleed, mass effect or edema. Moderate atrophy of the brain. Evidence of chronic small vessel disease involving white matter tracts. The CT scanner at [facility] is accredited by the [employer] and the scans are performed using dose optimization techniques as appropriate to a performed exam including Automatic Exposure control.
--- NOTE | 2018-10-27 16:06 | Diagnostic Imaging Report ---
Indication: Dyspnea Comparison: 07/26/2018 A single view chest radiograph was obtained. Findings: No definite infiltrate or pulmonary vascular congestion identified. The heart is normal. The aorta is mildly enlarged consistent with atherosclerotic vascular disease. The bones are osteopenic. Impression: No acute disease
[2018-10-27 16:08] LABS: ALANINE AMINOTRANSFERASE 21 U/L (12-78); ALBUMIN 3.6 G/DL (3.4-5.0); ALBUMIN/GLOBULIN RATIO 1.1 (1.0-2.7); ALKALINE PHOSPHATASE 65 U/L (46-116); ASPARTATE AMINO TRANSFERASE 13 U/L (15-37); BILIRUBIN,TOTAL 0.2 MG/DL (0.2-1.0); CREATINE KINASE 50 U/L (26-308)
[2018-10-27 16:52] LABS: APPEARANCE,URINE CLEAR; BILIRUBIN, URINE NEGATIVE (NEGATIVE); COLOR,URINE PALE YELLOW; GLUCOSE, URINE (UA) NEGATIVE (NEGATIVE); KETONES,URINE NEGATIVE (NEGATIVE); LEUKOCYTE ESTERASE ,URINE NEGATIVE (NEGATIVE); NITRITE,URINE NEGATIVE (NEGATIVE); PH,URINE 7 (4.5-8.0); PROTEIN,URINE NEGATIVE (NEGATIVE); UROBILINOGEN,URINE NORMAL MG/DL (0.0-1.0)
[2018-10-27] MEDS ORDERED: Tubing IV Secondary IV ONE (17:05)
--- NOTE | 2018-10-27 17:33 | NUR ---
ED Nurse Note: MRSA swab done, pt refused VRE/CRE swab.
[2018-10-27 17:40] VITALS: BP 153/84
--- NOTE | 2018-10-27 18:17 | NUR ---
ED Nurse Note: Rerport given to ASIYA Monsivais at ext [phone]. Pt to be transfered to room [facility] on [facility] per protocol.
[2018-10-27 18:35] VITALS: BP 166/85
--- NOTE | 2018-10-27 19:00 | NUR ---
NURSE NOTES: Received report from ASIYA Monsivais and rounds done. Received pt in bed, sleeping, AOX1, non-verbal, no distress noted. Pulled out IV. Will re-insert new IV. Will admit pt to floor. Bed in lowest position and locked, side rails up x 2, call light within reach. Will continue to monitor.
[2018-10-27 20:00] VITALS: BP 141/66
--- NOTE | 2018-10-27 20:12 | NUR ---
NURSE NOTES: Dr. Lizarraga paged for admission orders, awaiting for call back.
--- NOTE | 2018-10-27 21:00 | NUR ---
NURSE NOTES: Pt refused VRE screen swab.
[2018-10-27] MEDS ORDERED: LORazepam Inj 2mg/ml 1ml IV PRN (21:30)
[2018-10-27] MEDS ORDERED: Albuterol/Ipratropium 3ml neb HHN PRN (21:30)
[2018-10-27] MEDS ORDERED: Albuterol/Ipratropium 3ml neb HHN SCH (21:30)
--- NOTE | 2018-10-27 21:30 | NUR ---
NURSE NOTES: Dr. Braxton called back admissions orders obtained. Will carry out orders.
[2018-10-27] MEDS ORDERED: Heparin 5000 units/ml inj SUBQ SCH (22:00)
[2018-10-27] MEDS: 1/2NS w/KCl 20mEq 1000ml 1,000 ML IV SCH (22:43)
[2018-10-28] VITALS: BP 133/73
--- NOTE | 2018-10-28 00:42 | NUR ---
NURSE NOTES: IV on L FA infiltrated. IV removed, applied 2x2 gauze and tape. Pt refused new IV insertion. Teaching done, pt continue to refuse, pt wishes honored.
[2018-10-28] MEDS ORDERED: Albuterol ud Inhalation HHN SCH ×2 (01:00)
--- NOTE | 2018-10-28 06:00 | NUR ---
NURSE NOTES: Pt ambulated to the restroom voided without difficulty, safely back in bed without any distress note.
--- NOTE | 2018-10-28 06:24 | NUR ---
NURSE NOTES: Pt continue to refuse IV insertion. Explained to pt the need for antibiotic. Paged Dr. Braxton, awaiting for call back.
[2018-10-28] MEDS ORDERED: Haloperidol 5mg/ml Inj IM PRN ×2 (07:12→07:15)
--- NOTE | 2018-10-28 07:18 | NUR ---
HAND-OFF: Report given to ASIYA Monsivais. Pt in stable condition.
--- NOTE | 2018-10-28 07:22 | NUR ---
NURSE NOTES:BEDSIDE ROUNDS WITH OUTGOING RN.PT.AWAKE,SLOW AND LIMITED VERBAL RESPONSE TO QUESTIONS,A/O X1,MOVING ALL EXTREMITIES SPONTANEOUSLY.REFUSED FOR IV,MEDS,VITAL SIGNS TAKEN,EATING 100/%.BED ALARM/LOCKED.FALL PRECAUTIONS IMPLEMENTED.CALL ROGERS AT BEDSIDE.WILL MONITOR.
[2018-10-28] MEDS: Benztropine 1mg tab ORAL SCH ×2 (08:39→18:00)
[2018-10-28] MEDS: Heparin 5000 units/ml inj SUBQ SCH ×2 (08:39→20:38)
[2018-10-28] MEDS: Metoprolol Succinate XL 50mg tab ORAL SCH (08:39)
--- NOTE | 2018-10-28 11:20 | NUR ---
CASE MANAGEMENT: INITIAL REVIEW 63 YO M MICAELA FROM [facility] CC: ALOC PMHx: HTN. COPD. SI:ALOC T 98.1 HR 57 RR 17 B/P 129/77 SATS 91% ON RA NA 132 CL 97 CR 0.5 AST 13 IS: NS BOLUS X1 HALDOL IM X1 BENADRYL IV X1 DUO NEB HHN X1 PATIENT ADMITTED TO MED/SURG 10/27/2018 @ 1630 DCP: PATIENT TO BE DISCHARGED TO SNF ONCE MEDICALLY CLEARED. PLAN OF CARE: PSYCH CONSULT Addendum: 10/28/18 at 1136 by Annetta Vilchis INTERQUAL MET
[2018-10-28] MEDS: 1/2NS w/KCl 20mEq 1000ml 1,000 ML IV SCH (15:10)
--- NOTE | 2018-10-28 17:25 | NUR ---
NURSE NOTES:SEEN BY ,INFORMED RE:PT.NON COMPLIANT TO MEDS,VITAL SIGNS,IV RE-INSERTION,AND CARE.AND TRIES TO SMOKE INSIDE THE ROOM.TOOK NUCLEAR MEDICINE CHIEF TECHNOLOGIST FR. PT.AND AND KEEP IN CHART.WILL CONTINUE TO MONITOR.
--- NOTE | 2018-10-28 18:10 | NUR ---
NURSE NOTES:SPOKE TO AMINA(SOFTWARE TOOLS ENGINEER)RE:PT. GOING BACK TO THEIR BOARD AND CARE([facility]BUT STATED"CALL BACK IN 10 MINUTES,BECAUSE I WILL CALL MY BOSS"CHARGE NURSE(TIMMY BRADEN) AWARE.
--- NOTE | 2018-10-28 18:38 | NUR ---
CHARGE NURSE NOTES: Pt if for Dc back to [facility], called Yomaira, the blank driller back after her inquiry w/ her boss. Per Yomaira, the boss told her not to accept the pt because he is too much problem. He has been in their facility for only 2-3 days. I requested Yomaira to tell her boss to call her so I can talk to Carly, her boss but yomaira said to call in AM. This matter was reported to Janina Saenz, director of case work aide. She will follow up tomorrow.
--- NOTE | 2018-10-28 19:00 | NUR ---
NURSE NOTES: Received report from ASIYA Monsivais and rounds done. Received pt in bed, asleep, arousable by verbal stimuli, awake, confused, non-verbal, no distress noted. Pt has no IV access. Pt refused IV insertion. Bed in low position and locked, side rails up x 2, call light within. Will continue to monitor.
--- NOTE | 2018-10-28 19:15 | Consultation ---
DATE OF CONSULTATION: 10/28/2018 CONSULTING PHYSICIAN: Yessy Barillas M.D. HISTORY OF PRESENT ILLNESS: This is a 63-year-old male with a history of multiple medical problems, who has been admitted to the hospital due to being more confused. The patient has not been cooperative with the evaluation. He has anxiety. Has been having decreased appetite and losing weight. The patient has a history of schizophrenia. I am familiar with this patient from previous admission. The patient was given Zyprexa and Haldol in the past. During the evaluation, the patient has waxing and waning consciousness. He knows his name, however, he has psychomotor retardation. He is unable to provide much history. PAST PSYCHIATRIC HISTORY: Schizophrenia, encephalopathy. He has been taking Haldol and Zyprexa in the past. PAST MEDICAL HISTORY: Significant for COPD and tachycardia. SUBSTANCE ABUSE HISTORY: No known history of illicit drug use or alcohol. ALLERGIES: No known drug allergies. MENTAL STATUS EXAMINATION: The patient is alert, oriented times self. Has waxing waning consciousness. Mood is neutral to anxious. Affect is constricted, congruent with mood. Thought process concrete. Thought content, no suicidal or homicidal ideation. ASSESSMENT: [place] I Schizophrenia, acute encephalopathy. [place] II Deferred. [place] III As above. [place] IV Low. [place] V 20. PLAN: 1. The patient will be started on Zyprexa 5 mg p.o. at bedtime. 2. Ativan p.r.n. 3. We will provide the patient with reality orientation and supportive therapy. Yessy Barillas M.D. DR: TK JOB#: [id number] CC:
--- NOTE | 2018-10-28 19:15 | NUR ---
HAND-OFF: Report given to ОЛЕГ MIRZA RN.PT. ASLEEP.ENDORSED RE:D/C PENDING..
[2018-10-28 20:00] VITALS: BP 129/64
--- NOTE | 2018-10-28 20:39 | NUR ---
NURSE NOTES: Refused Heparin sub cut injection. Risk and benifits discussed with pt. Pt still refused medication.
--- NOTE | 2018-10-29 01:15 | History and Physical Report ---
DATE OF ADMISSION: 10/27/2018 CHIEF COMPLAINT: Altered level of consciousness. HISTORY OF PRESENT ILLNESS: This is a 63-year-old male from [facility], who was sent to the ER due to altered level of consciousness. The patient is an extremely poor historian due to schizophrenia. The patient is admitted to regular floor. PAST MEDICAL HISTORY: 1. Schizophrenia. 2. Chronic obstructive pulmonary disease. 3. Benign prostatic hypertrophy. MEDICATIONS: 1. Cogentin. 2. Proscar. 3. Haldol. 4. Lorazepam. 5. Metoprolol. 6. Olanzapine. 7. Potassium chloride. ALLERGIES: No known drug allergies. FAMILY HISTORY: The patient is a very poor historian and uncooperative. SOCIAL HISTORY: The patient is a very poor historian and uncooperative. REVIEW OF SYSTEMS: The patient is a very poor historian and uncooperative. PHYSICAL EXAMINATION: GENERAL: This is an elderly male, who is in no acute distress. VITAL SIGNS: The patient is refusing. HEENT: The head is normocephalic and atraumatic. Pupils are equal, round, and reactive to light. NECK: Supple. Trachea midline. There is no lymphadenopathy or thyromegaly. LUNGS: Bilateral wheezes and rhonchi. HEART: Regular rate and rhythm without rubs, murmurs, or gallops. ABDOMEN: Soft and nontender. Bowel sounds were active. EXTREMITIES: No clubbing, cyanosis, or edema. NEUROLOGICAL: He is alert, but confused. There were no gross focal findings. LABORATORY AND ANCILLARY DATA: CMP and CBC are within normal limits. Urine tox screen negative. Chest x-ray, no acute disease. Head CT, no acute findings. Moderate atrophy. ASSESSMENT: 1. Schizophrenia. 2. Chronic obstructive pulmonary disease. 3. Benign prostatic hypertrophy. PLAN: The patient so far has been refusing vital signs and medications. Plan discharge back to his board and care. No evidence of acute process. Medically stable. Omid Lizarraga M.D. DR: THERESE JOB#: [id number] CC:
--- NOTE | 2018-10-29 06:17 | NUR ---
NURSE NOTES: Non-compliant, refused vital signs, IV insertion, IV fluid.
--- NOTE | 2018-10-29 07:30 | NUR ---
HAND-OFF: Report given to ASIYA Henley. Pt in stable condition.
--- NOTE | 2018-10-29 07:32 | NUR ---
NURSE NOTES: Received report from Sander Ramos RN. Rounding done with outgoing nurse. Patient asleep. Bed alarm is on. No IV access. Bed in lowest position, call light within reach. Will continue to monitor.
[2018-10-29] MEDS: 1/2NS w/KCl 20mEq 1000ml 1,000 ML IV SCH (07:50)
[2018-10-29] MEDS: Metoprolol Succinate XL 50mg tab ORAL SCH (09:00)
[2018-10-29] MEDS: Benztropine 1mg tab ORAL SCH ×2 (09:00→17:40)
[2018-10-29] MEDS: Heparin 5000 units/ml inj SUBQ SCH ×2 (09:00→21:00)
--- NOTE | 2018-10-29 10:53 | NUR ---
DISCHARGE PLANNING: NOTE PATIENT TO BE DISCHARGED TO [facility] [address] [place] ETA 1200 Addendum: 10/29/18 at 1459 by Annetta Vilchis AILYAH AT [facility] REFUSED TO ACCEPT THIS PATIENT NURSING MADE AWARE. CLINICALS FAXED TO [facility]. [facility] IS NOT ACCEPTING THIS MEDI- NETTIE PT. ESTRELLITA WILL CONTINUE TO LOOK FOR PLACEMENT
--- NOTE | 2018-10-29 11:31 | NUR ---
NURSE NOTES: Called [facility] and let them know that pt will be transferred around 1200.
--- NOTE | 2018-10-29 13:20 | NUR ---
NURSE NOTES: Discharge was cancelled because [facility] did not accept pt. selling manager will set up the placement.
--- NOTE | 2018-10-29 15:00 | NUR ---
CASE MANAGEMENT: REVIEW 10/29/2018 SI:ALOC PATIENT REFUSED. NO LABS TODAY IS: IVF @ 60 mL/HR COGENTIN PO BID TOPROL PO QD PROSCAR PO QD LEVOFLOXACIN IV Q24H MED/SURG STATUS DCP: PATIENT TO BE DISCHARGED TO SNF ONCE MEDICALLY CLEARED. PLAN OF CARE: DC PLANNING
--- NOTE | 2018-10-29 15:19 | NUR ---
NURSE NOTES: Pt closed the door for 30 mins. Checked the pt's room and smelled smoking. Looked for cigarette. Small matchbox found. Store in his chart. Addendum: 10/29/18 at 1522 by Raquel Horne RN ADDENDUM Instruction for smoking cessation was given to pt.
--- NOTE | 2018-10-29 15:24 | General Progress Note ---
Assessment/Plan Assessment/Plan: No active medical issues. B+C refusing pt. Trying to transfer to psych. Subjective Allergies: Coded Allergies: No Known Allergies (Unverified , 07/25/18) Subjective Pt. still here Objective Last 24 Hour Vital Signs Date Time Temp Pulse Resp B/P (MAP) Pulse Ox O2 Delivery O2 Flow Rate FiO2 10/29/18 09:00 Room Air 10/28/18 21:00 Room Air 10/28/18 20:00 98.2 55 16 129/64 (85) 99 Intake and Output 10/28/18 10/29/18 18:59 06:59 Intake Total 400 ml Balance 400 ml Intake Oral 400 ml # Voids 4 1 # Bowel Movements 1 1 Height (Feet): 5 Height (Inches): 7.00 Weight (Pounds): 140 Objective CV RR Lungs B wheezes Abd SNT. BS + E No CCE Omid Lizarraga MD Oct 29, 2018 15:24
--- NOTE | 2018-10-29 16:01 | Cardiology Report ---
APPROVED REPORT EKG Measurement Heart [id number] MT [id number] [id number] [id number] Sinus bradycardia Possible inferolateral infarct, age undetermined Abnormal ECG
--- NOTE | 2018-10-29 16:24 | NUR ---
*-* NO INSURANCE INFORMATION IN THE BAR UNABLE TO SEND CLINICALS OR REVIEWS *-*
--- NOTE | 2018-10-29 19:43 | NUR ---
HAND-OFF: Report given to ASIYA Tobar. Pt is sleeping.
--- NOTE | 2018-10-29 19:45 | Progress Note ---
DATE: 10/29/2018 SUBJECTIVE: The patient is doing better, much calmer. Still not talkative. Uncooperative with the mini-mental status. Compliant with medications. Responds to internal stimuli. MENTAL STATUS EXAMINATION: The patient is alert, oriented times self, place, and situation. Mood is depressed. Affect is constricted, congruent with mood. Thought process is concrete. Thought content, no suicidal or homicidal ideation. Cognition is impaired. ASSESSMENT: Schizophrenia. PLAN: 1. The patient will be continued on current medication. 2. Provide the patient with reality orientation and supportive therapy. Yessy Barillas M.D. DR: TK JOB#: [id number] CC:
--- NOTE | 2018-10-29 20:00 | NUR ---
NURSE NOTES: PATIENT ASLEEP IN BED. NO IV ACCESS, MD AWARE. REFUSED VITAL SIGNS. NO S/SX OF ACUTE DISTRESS NOTED. BED IN LOWEST POSITION, LOCKED, ALARMS ON. CALL LIGHT IN REACH.
--- NOTE | 2018-10-30 07:10 | NUR ---
HAND-OFF: Report given to Kale BRADEN.
--- NOTE | 2018-10-30 07:11 | NUR ---
NURSE NOTES: Received report from ASIYA Tobar. Patient is sleeping at this time. Bed in lowest position, will continue to monitor.
[2018-10-30 08:00] VITALS: BP 180/80
--- NOTE | 2018-10-30 08:26 | CDS Physician Query ---
y PLEASE COMPLETE DOCUMENT BEFORE SIGNING Dear Dr. Lizarraga, Date: 10/30/2018 Principal Security Architect/CDS Name: Shameka Principal Security Architect/CDS Phone No.: [phone] CLINICAL DOCUMENTATION STATES: ERA with altered mental changes, noted to have sodium level of 132, IVF normal saline @ 60cc/hr. Base on the abnormal clinical finding and treatment rendered, please provide a corresponding diagnosis and document in the succeeding progress notes/discharge summary. Please respond to the following question: Is there a diagnosis specific to these symptoms or values? If so please state below. PHYSICIAN RESPONSE: Condition Present on Admission: [X] Yes [] No []Clinically Undeterminable Please also document in your Progress Notes and/or Discharge Summary and indicate if the condition was present on admission. MTDD
--- NOTE | 2018-10-30 08:31 | CDS Physician Query ---
Clarification is required for compliance, coding accuracy, and to reflect severity of illness for this patient Dear Dr. Lizarraga, Date: 10/30/2018 Shear Grinder Operator Helper/CDS Name: Shameka, "Altered Mental Status / Confusion / ALOC" documented in the History and Physical and Psych party plan sales consultant, documented acute encephalopathy. Please indicate the nature and chronicity of the condition below: [] Metabolic Encephalopathy [] Toxic Encephalopathy [] Toxic - Metabolic Encephalopathy [] Encephalopathy, Other [X] Other: Schizophrenia [] Not Applicable Present on Admission: [X] Yes [] No [] Clinically Undetermined Physician signature Date Please also document in your Progress Notes and/or Discharge Summary and indicate if the condition was present on admission. MICHEALD
--- NOTE | 2018-10-30 08:42 | CDS Physician Query ---
Clarification is required for compliance, coding accuracy, and to reflect severity of illness for this patient Dear Dr. Lizarraga, Date: 10/30/2018 Farm Management Agent/CDS Name: Shameka, 63 year old male, admitted from nursing with altered mental changes, psych consulted, and documented schizophrenia. Haldol 2.5mg IM prn Ativan 1 mg IV prn q6hrs, cogentin 0.5 mg po twice a day. Please provide the type of schizophrenia and document in the succeeding progress notes/discharge summary. 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 D.Other/Unable to determined. PHYSICIAN RESPONSE: Physician signature Date Please also document in your Progress Notes and/or Discharge Summary and indicate if the condition was present on admission. MTDD
--- NOTE | 2018-10-30 08:52 | CDS Physician Query ---
Clarification is required for compliance, coding accuracy, and to reflect severity of illness for this patient Dear Dr. Lizarraga, Date: 10/30/2018 Department Clerk/CDS Name: Milka Myles 63 year old male, with altered mental changes, chest xray- no acute disease , Ua- negative Leukocyte esterase. Levaquin IVPB daily Please respond to the following question: Is there a diagnosis specific to the treatment provided, If so please state below. PHYSICIAN RESPONSE: No Physician signature Date Please also document in your Progress Notes and/or Discharge Summary and indicate if the condition was present on admission. MICHEALD
[2018-10-30] MEDS: Heparin 5000 units/ml inj SUBQ SCH ×2 (09:00→21:00)
[2018-10-30] MEDS: Benztropine 1mg tab ORAL SCH ×2 (09:00→17:41)
[2018-10-30] MEDS: Metoprolol Succinate XL 50mg tab ORAL SCH (09:00)
--- NOTE | 2018-10-30 10:30 | NUR ---
NURSE NOTES: [place] 180[place]80 [place] [address]. Pt refused blood pressure meds. Dr. Lizarraga is aware.
--- NOTE | 2018-10-30 11:12 | General Progress Note ---
Assessment/Plan Assessment/Plan: No active medical issues. B+C refusing pt. Trying to transfer to psych. Subjective Allergies: Coded Allergies: No Known Allergies (Unverified , 07/25/18) Subjective Pt. still here Objective Last 24 Hour Vital Signs Date Time Temp Pulse Resp B/P (MAP) Pulse Ox O2 Delivery O2 Flow Rate FiO2 10/30/18 09:00 Room Air 10/29/18 21:00 Room Air Intake and Output 10/29/18 10/30/18 19:00 07:00 Intake Total 240 ml 120 ml Balance 240 ml 120 ml Intake Oral 240 ml 120 ml # Voids 2 1 Height (Feet): 5 Height (Inches): 7.00 Weight (Pounds): 140 Objective CV RR Lungs B wheezes Abd SNT. BS + E No CCE Omid Lizarraga MD Oct 30, 2018 11:12
--- NOTE | 2018-10-30 14:13 | NUR ---
DISCHARGE PLANNING: NOTE CLINICALS FAXED TO [facility] >>>ADMISSIONS IS NOT AVAILABLE ON [facility] >> PER JOB/U ON THURSDAY W/ DON REED SNF>> CLINICALS NOT RECEIVED. F: [phone] [facility] >>> MENAR WILL CALL CM BACK [facility] >> ADMISSIONS IS NOT AVAILABLE [facility] >> CLINICALS REFAXED [facility] >> ADMISSIONS IS NOT AVAILABLE [facility] >>> ADMISSIONS IS NOT AVAILABLE ON [facility]>> CLINICALS REFAXED TO [phone]
--- NOTE | 2018-10-30 19:23 | NUR ---
HAND-OFF: Report given to ISA Burton.
--- NOTE | 2018-10-30 19:23 | NUR ---
NURSE NOTES:Patient received from SAMANTA MANCERA R.N. Patient asleep during rounds . Patient no IV access safety / fall Implemented . call light within reach . bed in ow position at all times . will continue to monitor .
--- NOTE | 2018-10-30 20:00 | NUR ---
NURSE NOTES:Patient refused vital signs and Meds . AND Sander FERNÁNDEZ notified and aware. Addendum: 10/30/18 at 2153 by TRACI BENZ LVN Explained to patient risk and benefits . still refusing . will continue to monitor .
--- NOTE | 2018-10-30 21:26 | NUR ---
NURSE NOTES: [facility] call to shrimp picker Patient . regarding patient going to [facility] per SAMANTA MANCERA R.N. stating . [facility] did not accept patient case loader operator will set up the placement .[facility] ambulance will follow up on Thursday.
--- NOTE | 2018-10-31 02:45 | Progress Note ---
DATE: 10/30/2018 SUBJECTIVE: The patient is uncooperative with a mini-mental status examination. The patient is confused and disorganized with poor insight and judgment. I spoke to him going to psychiatric hospital on a voluntary basis. The patient is . MENTAL STATUS EXAMINATION: The patient is alert and oriented times self. Mood is agitated. Affect is constricted, congruent with mood. Thought process is concrete. Thought content, no suicidal or homicidal ideation. ASSESSMENT: Schizophrenia. PLAN: 1. The patient will be started on risperidone 2 mg p.o. at bedtime. We will continue the Ativan and Haldol p.r.n. 2. Provide the patient with reality orientation and supportive therapy. Yessy Barillas M.D. DR: OMARI JOB#: [id number] CC:
--- NOTE | 2018-10-31 07:44 | NUR ---
HAND-OFF: Report given to ELI Gale
[2018-10-31] MEDS: Metoprolol Succinate XL 50mg tab ORAL SCH (09:00)
[2018-10-31] MEDS: Benztropine 1mg tab ORAL SCH ×2 (09:00→17:54)
[2018-10-31] MEDS: Heparin 5000 units/ml inj SUBQ SCH ×2 (09:00→21:00)
--- NOTE | 2018-10-31 09:48 | NUR ---
NURSE NOTES: Patient is awake and alert to name,patient will not answer questions,attempt to take vitals,patient not complying.Ask patient will he take his medication as prescribe,patient folds his arm and does not respond.Patient did eat his breakfast. Dietary here to take his meal selections,but patient just looks but he looks and turns his back. Respirations unlabored.Call light within reach.
--- NOTE | 2018-10-31 12:56 | General Progress Note ---
Assessment/Plan Assessment/Plan: HTN out of control. Refusing meds! B+C refusing pt. Trying to transfer to psych. Subjective Allergies: Coded Allergies: No Known Allergies (Unverified , 07/25/18) Subjective BP high. Refusing meds Objective Last 24 Hour Vital Signs Date Time Temp Pulse Resp B/P (MAP) Pulse Ox O2 Delivery O2 Flow Rate FiO2 10/31/18 10:04 Room Air 10/31/18 09:50 Room Air 10/30/18 21:00 Room Air Intake and Output 10/30/18 10/31/18 19:00 07:00 Intake Total 1500 ml 400 ml Balance 1500 ml 400 ml Intake Oral 1500 ml 400 ml # Voids 3 2 Height (Feet): 5 Height (Inches): 7.00 Weight (Pounds): 140 Objective CV RR Lungs B wheezes Abd SNT. BS + E No CCE Omid Lizarraga MD Oct 31, 2018 12:56
--- NOTE | 2018-10-31 17:55 | NUR ---
NURSE NOTES:\ Patient ate dinner but still refuses to take medication as prescribe. patient shakes his head no when attempting to give medication as ordered.
--- NOTE | 2018-10-31 19:59 | NUR ---
HAND-OFF: Report given to ОЛЕГ BRADEN.
--- NOTE | 2018-10-31 22:03 | NUR ---
NURSE NOTES: Patient in bed asleep at this time. Refused VSS. Refused medications. Patient did not speak and just stared. No signs of SOB or pain at this time. Needs attended. Call light within reach. Bed is locked and in low position. Will continue to monitor.
--- NOTE | 2018-11-01 06:07 | NUR ---
NURSE NOTES: Patient slept well during the night. Patient did not respond to RN when spoken too. Needs attended. In stable condition.
--- NOTE | 2018-11-01 07:30 | NUR ---
NURSE NOTES: AWAKE.EATING BREAKFAST. IN N O APPARENT DISTRESS.
[2018-11-01] MEDS: Benztropine 1mg tab ORAL SCH ×2 (08:47→17:48)
[2018-11-01] MEDS: Heparin 5000 units/ml inj SUBQ SCH ×2 (08:48→20:32)
[2018-11-01] MEDS: Metoprolol Succinate XL 50mg tab ORAL SCH (08:48)
--- NOTE | 2018-11-01 11:22 | General Progress Note ---
Assessment/Plan Assessment/Plan: HTN out of control. Refusing meds! B+C refusing pt. Trying to transfer to psych. Subjective Allergies: Coded Allergies: No Known Allergies (Unverified , 07/25/18) Subjective BP high. Refusing meds Objective Last 24 Hour Vital Signs Date Time Temp Pulse Resp B/P (MAP) Pulse Ox O2 Delivery O2 Flow Rate FiO2 11/01/18 08:04 Room Air 11/01/18 08:03 Room Air 21 10/31/18 21:00 Room Air 10/31/18 20:10 Room Air Intake and Output 10/31/18 11/01/18 19:00 07:00 Intake Total 300 ml 600 ml Balance 300 ml 600 ml Intake Oral 300 ml 600 ml # Voids 3 Height (Feet): 5 Height (Inches): 7.00 Weight (Pounds): 140 Objective CV RR Lungs B wheezes Abd SNT. BS + E No CCE Omid Lizarraga MD Nov 01, 2018 11:22
--- NOTE | 2018-11-01 19:06 | NUR ---
NURSE NOTES: asleep. in no distress. does not verbalize when spoken to. appetite good for all meals.
--- NOTE | 2018-11-01 19:28 | NUR ---
HAND-OFF: Report given to SORIN Mcleod RN.
--- NOTE | 2018-11-01 19:57 | NUR ---
NURSE NOTES: Patient in bed asleep. No verbal response. No signs of distress noted. In stable condition.
--- NOTE | 2018-11-01 21:15 | Progress Note ---
DATE: 11/01/2018 SUBJECTIVE: The patient is in bed, more talkative, answers the questions. He stated that he does not want to go psychiatric hospital. The patient has poor insight and judgment into his mental condition. The patient is compliant with his medication. MENTAL STATUS EXAMINATION: The patient is alert, oriented times self and place. Disoriented to date. Mood is irritable. Affect is constricted, congruent with mood. Thought process is concrete. Thought content, no suicidal or homicidal ideation. Cognition is impaired. ASSESSMENT: Stable. PLAN: 1. The patient will be provided with reality orientation and supportive therapy. 2. We will continue to follow and readjust the medications. Yessy Barillas M.D. DR: TK JOB#: [id number] CC:
--- NOTE | 2018-11-02 07:10 | NUR ---
NURSE NOTES: AWAKE. IN NO APPARENT DISTRESS. DOES NOT VERBALLY RSPOND WHEN SPOKEN TO.
[2018-11-02] MEDS: Benztropine 1mg tab ORAL SCH ×2 (08:42→17:54)
[2018-11-02] MEDS: Metoprolol Succinate XL 50mg tab ORAL SCH (08:43)
[2018-11-02] MEDS: Heparin 5000 units/ml inj SUBQ SCH ×2 (08:43→20:45)
--- NOTE | 2018-11-02 13:43 | NUR ---
Social Work This Sw received notification regarding inpatient Psychiatric placement needed. This Sw contacted [facility] (intake: [phone]) who has openings and will evaluate (this SW faxed chart information to fax [phone]).
--- NOTE | 2018-11-02 14:11 | NUR ---
SS note [facility] declined patient due to age (will need a geriatric bed). This SW spoke with scot Smith @ [facility] ([phone]) who will evaluate (this SW faxed chart information to fax [phone]). This SW spoke with scot Mckinnon @ [facility] [phone] and faxed chart information to fax [phone] (will evaluate; have some discharges pending at this time).
--- NOTE | 2018-11-02 15:11 | General Progress Note ---
Assessment/Plan Assessment/Plan: HTN out of control. Refusing meds! B+C refusing pt. Trying to transfer to psych. Subjective Allergies: Coded Allergies: No Known Allergies (Unverified , 07/25/18) Subjective BP high. Refusing meds Objective Last 24 Hour Vital Signs Date Time Temp Pulse Resp B/P (MAP) Pulse Ox O2 Delivery O2 Flow Rate FiO2 11/02/18 08:03 Room Air 11/01/18 21:00 Room Air 11/01/18 19:46 Room Air 21 Intake and Output 11/01/18 11/02/18 19:00 07:00 Intake Total 900 ml 740 ml Balance 900 ml 740 ml Intake Oral 900 ml 740 ml # Voids 3 3 Height (Feet): 5 Height (Inches): 7.00 Weight (Pounds): 140 Objective CV RR Lungs B wheezes Abd SNT. BS + E No CCE Omid Lizarraga MD Nov 02, 2018 15:11
--- NOTE | 2018-11-02 15:52 | NUR ---
[facility] has evaluated patient and will be sending someone out to place a 51/50 hold (for transfer to their inpatient Psychiatric Facility).
--- NOTE | 2018-11-02 18:00 | Progress Note ---
DATE: 11/02/2018 SUBJECTIVE: The patient is calm, cooperative. No behavior issues. Lying in bed, in no acute distress. Has some anxiety. The patient is reluctant to go to a psychiatric unit. He is depressed and withdrawn. MENTAL STATUS EXAMINATION: The patient is alert, oriented times self and place. He was somewhat uncooperative with mini-mental status examination. Has psychomotor retardation. Minimally verbal. Mood is dysphoric. Affect is constricted, congruent with mood. Thought process is concrete. Thought content, no suicidal or homicidal ideation. ASSESSMENT: Schizophrenia. PLAN: 1. We will continue current medication. 2. Provide the patient with reality orientation and supportive therapy. Yessy Barillas M.D. DR: TK JOB#: [id number] CC:
[2018-11-02] MEDS ORDERED: RISPERDAL2 MG ORAL (18:16)
[2018-11-02] MEDS ORDERED: BENZTROPINE ME0.5 MG PO (18:18)
--- NOTE | 2018-11-02 18:59 | NUR ---
NURSE NOTES: QUIET IN BED AND ASLEEP.IN NO DISTRESS. FOR TRANSFER TO [facility]. REPORT GUDELIA TO AISLINN BRADEN. WAITING FOR TRANSPORTATION.
--- NOTE | 2018-11-02 19:28 | NUR ---
HAND-OFF: Report given to Ricco CHAVEZ RN.
--- NOTE | 2018-11-02 19:30 | NUR ---
NURSE NOTES: Received a report from ASIYA Calderon. Done rounds. Pt is lying in bed awake but no verbal response noted. Waiting for transportation to transfer.
--- NOTE | 2018-11-02 19:37 | NUR ---
NURSE NOTES: [facility] ambulance called. Per tech, they will be an hour late.
--- NOTE | 2018-11-02 22:05 | NUR ---
NURSE NOTES: @ 2140 Arrived [facility] 2 looping inspector with kristarjohnnie. Report to pt's conditions and provide documentation. Update looping inspector for pt's refusal for medication and checking v/s. Pt is awake but no verbal communication noted. No aggressive noted. No acute distress noted. @2205 Assessment done by looping inspector as their protocols. Pt left the facility via gurney escorted by 2 looping inspector to transfer to [facility] for further evaluation.
--- NOTE | 2018-11-03 08:13 | Discharge Summary ---
Discharge Summary Discharge Summary _ DATE OF ADMISSION: 10/27/2018 DATE OF DISCHARGE: 11/02/2018 DISCHARGED BY: Dr. Lizarraga : REASON FOR ADMISSION: 63 years old male with past medical history of hypertension, COPD, psychiatric history, was sent from the assisted living due to altered level of consciousness. Patient resided at the assisted living facility and apparently was trying to walk away. Upon evaluation vital signs were stable heart rate 57. Laboratory work-up revealed no leukocytosis, stable hemoglobin and hematocrit. Sodium 132. Stable renal parameters. Glucose 106. Stable LFT. Albumin 3.6. Troponin negative. EKG revealed sinus bradycardia , no block, no ectopy. . Serum salicylate and Tylenol levels were negative. Urine toxicology screen was negative. TSH within normal limits. Urinalysis revealed no evidence of urinary tract infection. Chest x-ray demonstrated scaring on the left bases and evidence of the COPD , but no infiltrates. CT of the head demonstrated no acute intracranial bleeding, mass-effect or edema. Moderate atrophy of the brain was noted with evidence of chronic small vessel disease, involving white matter tracts. Patient subsequently was admitted to medical surgical floor for further evaluation and management . CONSULTANTS: psychiatrist [facility] COURSE: Patient admitted to medical surgical floor. Psychiatric evaluation was requested. Per psychiatrist, patient had schizophrenia and acute encephalopathy. Patient started on risperidone. Ativan was on board as needed . Patient also noted to have hyponatremia on admission. Patient started on IV fluids with normal saline. Reality orientation and supportive therapy provided. Blood pressure remained elevated, since patient declined his beta-miesha for blood pressure management. Proscar and DVT prophylaxis were ordered. Patient declined all medications. Supplemental oxygen was on board as needed to keep pulse oximetry above 92%. Pulse oximetry was stable on room air. No evidence of COPD exacerbation. [id number] was refusing to take patient back. Patient was evaluated by PET team, placed on 5150 and transferred to psychiatric facility/[facility] for further psychiatric management. FINAL DIAGNOSES: Hypertension [id number] Acute encephalopathy, probably due to schizophrenia Schizophrenia Hyponatremia COPD BPH DISCHARGE MEDICATIONS: See Medication Reconciliation list. DISCHARGE INSTRUCTIONS: Patient was transferred to psychiatric facility for further management. I have been assigned to dictate discharge summary for this account. I was not involved in the patient's management. Tila Greene NP Nov 03, 2018 08:13
== END 2018-11-02 22:05 | DRG 885 ==
LOC: EDBD 15:07 → EMR 15:35 → 3E 17:04 → INTOOBSV 17:04 → OBSVTOIN 17:04 → EDBEDREQ 18:12 → EMR 18:17 → OBSVTOIN 10-29 15:24 → INTOOBSV 10-29 15:24
DX: F20.9 Schizophrenia, unspecified (principal); G93.49 Other encephalopathy; E87.1 Hypo-osmolality and hyponatremia; J44.9 Chronic obstructive pulmonary disease, unspecified; N40.0 Benign prostatic hyperplasia without lower urinary tract symptoms; F41.9 Anxiety disorder, unspecified; I10 Essential (primary) hypertension; R00.1 Bradycardia, unspecified; I73.9 Peripheral vascular disease, unspecified; Z91.14 Patient's other noncompliance with medication regimen
CPT/HCPCS: 36415; 70450; 71045; 80053; 80307; 80329; 81003; 82550; 84443; 84484; 85025; 87081; 93005; 94664; 96360; 96372; 99284; J7620